=== PATIENT | female | born 1935 | race Caucasian/White ===

== ENCOUNTER → 2016-06-30 | Outpatient (CLI) | payer MEDICARE, BC ==
--- NOTE | 2016-06-30 10:58 | USB ---
Reason for exam: clinical finding. History: Patient is postmenopausal. Family history of breast cancer in maternal cousin, premenopausal breast cancer in sister at age 54, and breast cancer in maternal aunt at age 70. Indicated problem(s): lump or thickening in the left breast. Physical Findings: Nurse Summary: all soft, nodular, movable (nurse ts). US Breast LT Left breast ultrasound including all four quadrants, the retroareolar region and axilla demonstrates a 0.3 x 0.3 x 0.3cm round, cystic, benign lesion at the nipple and a 0.7 x 0.4 x 0.3cm intramammary lymph node, benign at 3 o'clock. No solid or cystic area at the 2:30 palpale site. Patient's routine annual exam can be performed in diagnostic clinic. These results were verbally communicated with the patient and result sheet given to the patient on 06/30/16. ASSESSMENT: Negative, BI-RAD 1 RECOMMENDATION: Follow-up diagnostic mammogram of both breasts in 5 months. Back on schedule for November 2016.
== END | disposition home or self-care (01) ==
LOC: RADUSWWP 08:12
PROVIDERS: ATTEND Family Medicine
DX: N63 Unspecified lump in breast (principal)

== ENCOUNTER → 2016-11-08 | Outpatient (CLI) | payer MEDICARE, BC ==
--- NOTE | 2016-11-08 13:53 | US ---
EXAMINATION TYPE: US kidneys/renal and bladder DATE OF EXAM: 11/08/2016 11:01 AM COMPARISON: Previous dated May CLINICAL HISTORY: N18.3 CKD Stage 3. EXAM MEASUREMENTS: Right Kidney: 8.6 x 4.5 x 5.0 cm Left Kidney: 8.3 x 3.6 x 3.4 cm Patient of large thick body habitus. Technically difficult study. Right Kidney: No hydronephrosis or masses seen Left Kidney: No hydronephrosis or masses seen Bladder: wnl Bilateral Jets seen: No There is no evidence for hydronephrosis at this point in time. No nephrolithiasis is seen. No leonel s are identified. Cortical medullary differentiation is maintained. The urinary bladder is anechoic. Bilateral ureteral jets are seen. There is no ascites. IMPRESSION: Technologist reports and technically demanding exam. Kidney sizes as described.
== END | disposition home or self-care (01) ==
LOC: RADUSWWP 10:39
PROVIDERS: ATTEND Internal Medicine Nephrology
DX: N18.3 Chronic kidney disease, stage 3 (moderate) (principal)
CPT/HCPCS: 76770

== ENCOUNTER → 2016-11-30 | Outpatient (CLI) | payer MEDICARE, BC ==
--- NOTE | 2016-11-30 14:59 | MM ---
Reason for exam: additional evaluation requested from prior study. Last mammogram was performed 1 year ago. History: Patient is postmenopausal. Family history of breast cancer in maternal cousin, premenopausal breast cancer in sister at age 54, and breast cancer in maternal aunt at age 70. Physical Findings: Nurse did not find any significant physical abnormalities on exam. MG 3D Diag Mammo W/Cad JODY Bilateral CC and MLO view(s) were taken. Prior study comparison: December 08, 2015, bilateral MG 3d screening mammo w/cad. September 18, 2014, bilateral MG screening mammo w CAD. The breast tissue is heterogeneously dense. This may lower the sensitivity of mammography. Finding #1: There is a 8 mm circumscribed oval mass in the upper outer quadrant, middle position of the right breast. Finding #2: There are typically benign vascular calcifications in both breasts. No significant changes in finding since December 08, 2015. These results were verbally communicated with the patient and result sheet given to the patient on 11/30/16. ASSESSMENT: Incomplete: need additional imaging evaluation, BI-RAD 0 RECOMMENDATION: Ultrasound of the right breast.
--- NOTE | 2016-11-30 15:01 | USB ---
Reason for exam: additional evaluation requested from abnormal screening. History: Patient is postmenopausal. Family history of breast cancer in maternal cousin, premenopausal breast cancer in sister at age 54, and breast cancer in maternal aunt at age 70. US Breast Limited RT Right breast ultrasound demonstrates a 0.5 x 0.3 x 0.7cm oval, cystic lesion at 9 o'clock. These results were verbally communicated with the patient and result sheet given to the patient on 11/30/16. ASSESSMENT: Probably benign, BI-RAD 3 RECOMMENDATION: Follow-up diagnostic mammogram and ultrasound of the right breast in 6 months.
== END | disposition home or self-care (01) ==
LOC: RADMAMWWP 13:12
PROVIDERS: ATTEND Family Medicine
DX: R92.8 Other abnormal and inconclusive findings on diagnostic imaging of breast (principal)
CPT/HCPCS: 76642; G0204; G0279

== ENCOUNTER → 2017-06-27 | Outpatient (CLI) | payer MEDICARE, BC ==
--- NOTE | 2017-06-28 07:17 | MM ---
Reason for exam: follow-up at short interval from prior study. Last mammogram was performed 7 months ago. History: Patient is postmenopausal. Family history of breast cancer in maternal cousin, premenopausal breast cancer in sister at age 54, and breast cancer in maternal aunt at age 70. Physical Findings: Nurse did not find any significant physical abnormalities on exam. MG 3D Diag Mammo W/Cad RT CC and MLO view(s) were taken of the right breast. Prior study comparison: November 30, 2016, bilateral MG 3d diag mammo w/cad JODY. December 08, 2015, bilateral MG 3d screening mammo w/cad. The breast tissue is heterogeneously dense. This may lower the sensitivity of mammography. Benign calcifications in the right breast. There is chronic nodularity in the right breast. These results were verbally communicated with the patient and result sheet given to the patient on 06/27/17. ASSESSMENT: Benign, BI-RAD 2 RECOMMENDATION: Routine screening mammogram of both breasts in 6 months. Back on schedule for November 2017.
--- NOTE | 2017-06-28 07:18 | USB ---
Reason for exam: follow-up at short interval from prior study. History: Patient is postmenopausal. Family history of breast cancer in maternal cousin, premenopausal breast cancer in sister at age 54, and breast cancer in maternal aunt at age 70. US Breast RT Right breast ultrasound includes all four quadrants, the retroareolar region and axilla. Finding demonstrates a 0.4 x 0.4 x 0.2cm cystic lesion at 9 o'clock. These results were verbally communicated with the patient and result sheet given to the patient on 06/27/17. ASSESSMENT: Benign, BI-RAD 2 RECOMMENDATION: Routine screening mammogram of both breasts in 6 months. Back on schedule for November 2017.
== END | disposition home or self-care (01) ==
LOC: RADMAMWWP 13:20
PROVIDERS: ATTEND Family Medicine
DX: R92.8 Other abnormal and inconclusive findings on diagnostic imaging of breast (principal); N63.10 Unspecified lump in the right breast, unspecified quadrant
CPT/HCPCS: 77065; 76641; G0279

== ENCOUNTER → 2017-12-27 | Outpatient (CLI) | payer MEDICARE, BC ==
--- NOTE | 2017-12-28 15:20 | MM ---
Reason for exam: screening (asymptomatic). Last mammogram was performed 6 months ago. History: Patient is postmenopausal. Family history of breast cancer in maternal cousin, premenopausal breast cancer in sister at age 54, and breast cancer in maternal aunt at age 70. Physical Findings: A clinical breast exam by your physician is recommended on an annual basis and results should be correlated with mammographic findings. MG Screening Mammo w CAD Bilateral CC and MLO view(s) were taken. XCCL view(s) were taken of the right breast. Prior study comparison: June 27, 2017, right breast MG 3d diag mammo w/cad RT. November 30, 2016, bilateral MG 3d diag mammo w/cad JODY. Finding: There are typically benign vascular calcifications in both breasts. There is no discrete abnormality. ASSESSMENT: Benign, BI-RAD 2 RECOMMENDATION: Routine screening mammogram of both breasts in 1 year.
== END | disposition home or self-care (01) ==
LOC: RADMAMWWP 11:20
PROVIDERS: ATTEND Family Medicine
DX: Z12.31 Encounter for screening mammogram for malignant neoplasm of breast (principal)
CPT/HCPCS: 77067

== ENCOUNTER → 2019-01-18 | Outpatient (CLI) | payer MEDICARE, BC ==
--- NOTE | 2019-01-21 10:27 | MM ---
Reason for exam: screening (asymptomatic). Last mammogram was performed 1 year and 1 month ago. History: Patient is postmenopausal. Family history of breast cancer in maternal cousin, premenopausal breast cancer in sister at age 54, and breast cancer in maternal aunt at age 70. Physical Findings: A clinical breast exam by your physician is recommended on an annual basis and results should be correlated with mammographic findings. MG 3D Screening Mammo W/Cad Bilateral CC and MLO view(s) were taken. Prior study comparison: December 27, 2017, bilateral MG screening mammo w CAD. June 27, 2017, right breast MG 3d diag mammo w/cad RT. The breast tissue is heterogeneously dense. This may lower the sensitivity of mammography. There are benign appearing vascular calcifications bilaterally. There is no discrete abnormality. ASSESSMENT: Benign, BI-RAD 2 RECOMMENDATION: Routine screening mammogram of both breasts in 1 year.
== END | disposition home or self-care (01) ==
LOC: RADMAMWWP 14:02
PROVIDERS: ATTEND Family Medicine
DX: Z12.31 Encounter for screening mammogram for malignant neoplasm of breast (principal)
CPT/HCPCS: 77063; 77067

== ENCOUNTER → 2021-07-08 | Outpatient (CLI) | payer MEDICARE ==
--- NOTE | 2021-07-08 15:38 | US ---
EXAMINATION TYPE: US kidneys/renal and bladder DATE OF EXAM: 07/08/2021 COMPARISON: NONE CLINICAL HISTORY: N18.32 STAGE 3 CKD KIDNEY DISEASE. CKD EXAM MEASUREMENTS: Right Kidney: 8.4 x 3.9 x 4.1 cm Left Kidney: 8.0 x 4.0 x 3.5 cm Right Kidney: Simple cystic area = 2.1 x 2.0 x 2.2cm Left Kidney: no evidence of hydronephrosis Bladder: appears wnl Bilateral Jets seen: no urinary bladder is sonolucent. The posterior wall is normal. IMPRESSION: 1. Right renal cyst.
== END | disposition home or self-care (01) ==
LOC: RADUSWWP 11:59
PROVIDERS: ATTEND Internal Medicine Nephrology
DX: N28.1 Cyst of kidney, acquired (principal)
CPT/HCPCS: 76770

== ENCOUNTER → 2021-07-08 | Outpatient (CLI) | payer MEDICARE ==
--- NOTE | 2021-07-09 11:51 | MM ---
Reason for exam: screening (asymptomatic). Last mammogram was performed 2 years and 6 months ago. History: Patient is postmenopausal. Family history of breast cancer in maternal cousin, premenopausal breast cancer in sister at age 54, and breast cancer in maternal aunt at age 70. Physical Findings: A clinical breast exam by your physician is recommended on an annual basis and results should be correlated with mammographic findings. MG 3D Screening Mammo W/Cad Bilateral CC and MLO view(s) were taken. Prior study comparison: January 18, 2019, bilateral MG 3d screening mammo w/cad. December 27, 2017, bilateral MG screening mammo w CAD. The breast tissue is heterogeneously dense. This may lower the sensitivity of mammography. There are benign appearing vascular calcifications bilaterally. There is no discrete abnormality. ASSESSMENT: Benign, BI-RAD 2 RECOMMENDATION: Routine screening mammogram of both breasts in 1 year.
== END | disposition home or self-care (01) ==
LOC: RADMAMWWP 12:03
PROVIDERS: ATTEND Family Medicine
DX: Z12.31 Encounter for screening mammogram for malignant neoplasm of breast (principal); Z78.0 Asymptomatic menopausal state; Z80.3 Family history of malignant neoplasm of breast
CPT/HCPCS: 77063; 77067

== ENCOUNTER → 2021-08-31 | Outpatient (CLI) | payer MEDICARE ==
--- NOTE | 2021-08-31 12:47 | XR ---
EXAMINATION TYPE: XR wrist complete RT DATE OF EXAM: 08/31/2021 COMPARISON: NONE HISTORY: 86 year-old female right wrist pain, [id number]. TECHNIQUE: 3 views FINDINGS: Widening of the scapholunate interval at 3 mm. There seems to be some joint space narrowing at the ra dioscaphoid joint. Mild degenerative change first CMC joint. Corticated 3 mm fragment adjacent to the ulnar styloid process likely sequela of prior injury. No acute fracture, subluxation, dislocation se en. IMPRESSION: 1. Widened scapholunate interval suggesting underlying injury to the scapholunate ligament. 2. The presence of joint space narrowing at the radioscaphoid joint may indicate that #1 is an old in jury with developing SLAC wrist. 3. Mild OA at the base of the thumb. 3 mm corticated bone fragment at the ulnar styloid process likel y sequela of remote injury.
== END | disposition home or self-care (01) ==
LOC: RADXRYALE 09:40
PROVIDERS: ATTEND Physician Assistant Medical
DX: M18.11 Unilateral primary osteoarthritis of first carpometacarpal joint, right hand (principal); M25.831 Other specified joint disorders, right wrist

== ENCOUNTER 2023-04-19 06:52 | Day surgery (SDC) | payer MEDICARE ==
[~2023-04-19 06:52] MED LIST: LIDOCAINE 1% (10MG/ML) FOR IV START INTRADERMA PRN
[2023-04-19] MEDS: LACTATED RINGERS 1,000 ML IV SCH ×2 (07:36→07:57)
[2023-04-19] MEDS ORDERED: PROPOFOL 10 MG/ML 20 ML VIAL IV ONE (08:20)
[2023-04-19] MEDS ORDERED: LIDOCAINE 1% INJ 10MG/ML (20 ML MDV) ONE (08:20)
[2023-04-19] MEDS ORDERED: BENZOCAINE SPRAY 1 CAN TOPICAL ONE (08:40)
--- NOTE | 2023-04-19 08:58 | P.PCN ---
Date of Procedure: 04/19/23 Description of Procedure: Indication: Atrial fibrillation Procedure Description: After explaining the procedure to the patient, it's risk and complications, blood pressure, heart rate and O2 saturation were monitored. The throat was sprayed with Cetacaine. Patient received sedation per anesthesia department. The probe was introduced into the esophagus without difficulty. Images were obtained. Following that, the probe was removed. There was no immediate complication. Findings: Left atrial size is dilated, spontaneous contrast was noted. Left atrial appendage is normal. Left ventricular size and systolic function are normal. The aortic valve revealed fibrocalcific changes of the aortic cusps with preserved opening, mitral valve appears to be normal, tricuspid valve appears to be normal. No pericardial effusion was noted. Descending thoracic aorta revealed mild atherosclerotic changes. No shunting with contrast bubble study. Doppler: Pulse wave and color Doppler were obtained, an revealed mild mitral and tricuspid regurgitation, there was no shunting by color Doppler study. Conclusion: 1. Dilated left atrial size with normal appearance of the left atrial appendage 2. Normal of ventricle size and systolic function 3. Mild mitral and tricuspid regurgitation 4. And no pericardial effusion 5. Mild atherosclerotic changes of the descending thoracic aorta Cardioversion: After obtaining MEEK and sedated state synchronized biphasic cardioversion using 150 J was performed with scientology of sinus mechanism, there was no immediate complication.
[2023-04-19] MEDS ORDERED: LEVOTHYROXINE 75 MCG TAB PO SCH (09:00)
[2023-04-19] MEDS ORDERED: allopurinoL 300 MG TAB PO SCH (09:00)
[2023-04-19] MEDS ORDERED: SODIUM CHLORIDE 0.9% 1,000 ML IV SCH (09:00)
[2023-04-19] MEDS ORDERED: NON FORMULARY DRUG (Spironolactone [Spironolactone] 50 MG Tablet) PO SCH (09:00)
[2023-04-19] MEDS ORDERED: atenoloL 50 MG TAB PO SCH (09:00)
[2023-04-19 09:44] VITALS: RESP 16; TEMP 98
[2023-04-19 10:38] VITALS: BP 132/65; PULSE 78
[2023-04-19] MEDS ORDERED: RIVAROXABAN 15 MG TAB PO SCH (21:00)
[2023-04-19] MEDS ORDERED: ATORVASTATIN 40 MG TAB PO SCH (21:00)
== END 2023-04-19 10:23 | disposition home or self-care (01) ==
LOC: OR 06:52
PROVIDERS: ATTEND Internal Medicine Interventional Cardiology
DX: I08.2 Rheumatic disorders of both aortic and tricuspid valves (principal); I48.91 Unspecified atrial fibrillation; I70.0 Atherosclerosis of aorta; I25.2 Old myocardial infarction; I10 Essential (primary) hypertension; E78.5 Hyperlipidemia, unspecified; E03.9 Hypothyroidism, unspecified; M19.90 Unspecified osteoarthritis, unspecified site; Z87.891 Personal history of nicotine dependence; Z79.890 Hormone replacement therapy; Z79.899 Other long term (current) drug therapy; Z79.01 Long term (current) use of anticoagulants; Z88.0 Allergy status to penicillin; Z88.6 Allergy status to analgesic agent
CPT/HCPCS: 93312; 93320; 93325; 92960; J2001; J2704

== ENCOUNTER 2023-08-20 05:47 | Emergency (ER) | payer MEDICARE ==
[2023-08-20 06:09] LABS: Basophils % (A) 0 %; Eosinophils # (A) 0.2 k/uL (0-0.7); Eosinophils % (A) 2 %; HCT 33.4 % (34.0-46.0); Lymphocytes # (A) 1.3 k/uL (1.0-4.8); Lymphocytes % (A) 16 %; MCV 100.1 fL (80.0-100.0); Macrocytosis Slight; Monocytes # (A) 0.5 k/uL (0-1.0); Monocytes % (A) 6 %; Neutrophils % (A) 74 %; Platelet Count 142 k/uL (150-450); RBC 3.34 m/uL (3.80-5.40); WBC 8.1 k/uL (3.8-10.6)
[2023-08-20 06:26] LABS: ALT 16 U/L (4-34); AST 34 U/L (14-36); African American GFR (CKD) 32 (>60 ml/min/1.73 sqM); Alkaline Phosphatase 118 U/L (38-126); Anion Gap 11 mmol/L; Blood Urea Nitrogen 29 mg/dL (7-17); Calcium 9.4 mg/dL (8.4-10.2); Carbon Dioxide 23 mmol/L (22-30); Chloride 104 mmol/L (98-107); Glucose 101 mg/dL (74-99); Magnesium 1.6 mg/dL (1.6-2.3); Non-African American GFR(CKD) 28 (>60 ml/min/1.73 sqM); Potassium 4.5 mmol/L (3.5-5.1); Sodium 138 mmol/L (137-145); Total Protein 6.6 g/dL (6.3-8.2)
--- NOTE | 2023-08-20 06:30 | ED ---
Chest Pain HPI - General Chief Complaint: Chest Pain Stated Complaint: CHEST PAIN, SOB, SHOULDER PAIN Time Seen by Provider: 08/20/23 05:58 Source: patient, RN notes reviewed Mode of arrival: wheelchair Limitations: no limitations - History of Present Illness Initial Comments: 88-year-old female presents emergency department chief complaint of left-sided chest, shoulder pain. Patient states started last night is worsening. She states pain is in the front and the back states it hurts with movement, deep inspiration. She states it makes her feel short of breath she denies any recent cough or cold-like symptoms. She states she had a prior cardiac disease including hyperlipidemia and hypertension patient denies abdominal complaints denies nausea vomiting no diaphoretic episodes. - Related Data Home Medications Medication Instructions Recorded Confirmed Atorvastatin [Lipitor] 40 mg PO HS 06/16/15 04/19/23 Magnesium 500 mg PO BID 06/16/15 04/19/23 allopurinoL [Zyloprim] 300 mg PO DAILY 06/16/15 04/19/23 atenoloL [Tenormin] 50 mg PO DAILY 06/16/15 04/19/23 Cholecalciferol (Vitamin D3) 125 mcg PO DAILY 04/17/23 04/19/23 [Vitamin D3 (125 MCG = 5,000 IU)] Cyanocobalamin [Vitamin B-12] 500 mcg PO DAILY 04/17/23 04/19/23 Levothyroxine Sodium [Synthroid] 75 mcg PO DAILY 04/17/23 04/19/23 Rivaroxaban [Xarelto] 15 mg PO HS 04/17/23 04/19/23 Spironolactone 50 mg PO DAILY 04/17/23 04/19/23 Unk Folate 400 mcg PO DAILY 04/17/23 04/19/23 Unk Neuriva 1 tab PO DAILY 04/17/23 04/19/23 Unk Preservision 1 tab PO DAILY 04/17/23 04/19/23 Allergies Allergy/AdvReac Type Severity Reaction Status Date / Time aspirin Allergy Rash/Hives Verified 08/20/23 05:51 Penicillins Allergy Rash/Hives Verified 08/20/23 05:51 Review of Systems ROS Statement: Those systems with pertinent positive or pertinent negative responses have been documented in the HPI. ROS Other: All systems not noted in ROS Statement are negative. EKG Findings - EKG Comments: EKG Findings:: EKG performed at 555 A-fib was rate of 52 QRS 80 QT/QTc 412/392 - EKG Results: EKG: interpreted by LEW Past Medical History Past Medical History: Atrial Fibrillation, COPD, Hyperlipidemia, Hypertension, Myocardial Infarction ([place]), Osteoarthritis ([place]), Thyroid Disorder Additional Past Medical History / Comment(s): HX [place] 1990/hx macular degeneration, urinary leakage. See Dr Matute's H&P Last Myocardial Infarction Date:: 1990 History of Any Multi-Drug Resistant Organisms: None Reported Past Surgical History: Cholecystectomy, Hysterectomy, Joint Replacement Additional Past Surgical History / Comment(s): Hx. right and left total knee replacements 2009, and 2011, bilateral shoulder repairs for tears in rotator cuffs 2008, and 2007/ 2009 bilateral cataract surgeries, colonoscopy Past Anesthesia/Blood Transfusion Reactions: No Reported Reaction Past Psychological History: No Psychological Hx Reported Smoking Status: Former smoker, Light tobacco smoker Past Alcohol Use History: None Reported Past Drug Use History: None Reported - Past Family History Father Family Medical History: Myocardial Infarction ([place]) Mother Additional Family Medical History / Comment(s): mom from natural causes age 90 Sister(s) Family Medical History: Cancer Additional Family Medical History / Comment(s): sister- breast General Exam Limitations: no limitations General appearance: alert, in no apparent distress Head exam: Present: atraumatic, normocephalic, normal inspection Eye exam: Present: normal appearance, PERRL, EOMI. Absent: scleral icterus, conjunctival injection, periorbital swelling Neck exam: Present: normal inspection. Absent: tenderness, meningismus, lymphadenopathy Respiratory exam: Present: normal lung sounds bilaterally, chest wall tenderness. Absent: respiratory distress, wheezes, rales, rhonchi, stridor Cardiovascular Exam: Present: regular rate, normal rhythm, normal heart sounds. Absent: systolic murmur, diastolic murmur, rubs, gallop, clicks Extremities exam: Present: other (Pain with left shoulder range of motion, with palpation.) Neurological exam: Present: alert, oriented X3 Skin exam: Present: warm, dry, intact, normal color. Absent: rash Course Vital Signs 08/20/23 05:48 Temperature 97.7 F Pulse Rate 56 L Respiratory 24 Rate Blood Pressure 134/68 O2 Sat by Pulse 98 Oximetry Chest Pain MDM - MDM Was pt. sent in by a medical professional or institution (, [facility], [facility]OUR TESTER, urgent care, hospital, or fdc...) When possible be specific @ -No Did you speak to anyone other than the patient for history (EMS, parent, family, police, friend...)? What history was obtained from this source @ -No Did you review nursing and triage notes (agree or disagree)? Why? @ -I reviewed and agree with nursing and triage notes Were old charts reviewed (outside hosp., previous admission, EMS record, old EKG, old radiological studies, urgent care reports/EKG's, fdc records)? Report findings @ -[Reviewed prior laboratory studies Differential Diagnosis (chest pain, altered mental status, abdominal pain women, abdominal pain men, vaginal bleeding, weakness, fever, dyspnea, syncope, headache, dizziness, GI bleed, back pain, seizure, CVA, palpatations, mental health, musculoskeletal)? @ -Differential Chest Pain: Stable Angina, Unstable Angina, STEMI, NSTEMI Aortic Dissection, Pneumothorax, Musculoskeletal, Esophageal Spasm GERD, Cholecystitis, Pancreatitis, Zoster, this is not meant to be an all-inclusive list. EKG interpreted by me (3pts min.). @ -Chest x-ray shows mild COPD changes, possible atelectasis or minimal edema X-rays interpreted by me (1pt min.). @ -None done CT interpreted by me (1pt min.). @ -None done U/S interpreted by me (1pt. min.). @ -None done What testing was considered but not performed or refused? (CT, X-rays, U/S, labs)? Why? @ -None What meds were considered but not given or refused? Why? @ -None Did you discuss the management of the patient with other professionals (professionals i.e. , [facility], [facility]OUR TESTER, lab, RT, psych nurse, social worker psychiatric, industrial twisting machine operator, teacher, chief nursing officer, case making machine operator)? Give summary @ -No Was smoking cessation discussed for >3mins.? @ -No Was critical care preformed (if so, how long)? @ -No Were there social determinants of health that impacted care today? How? (Homelessness, low income, unemployed, alcoholism, drug addiction, transportation, low edu. Level, literacy, decrease access to med. care, [facility], rehab)? @ -No Was there de-escalation of care discussed even if they declined (Discuss DNR or withdrawal of care, Hospice)? DNR status @ -No What co-morbidities impacted this encounter? (DM, HTN, Smoking, COPD, CAD, Cancer, CVA, ARF, Chemo, Hep., AIDS, mental health diagnosis, sleep apnea, morbid obesity)? @ -A-fib, hyperlipidemia, hypertension Was patient admitted / discharged? Hospital course, mention meds given and route, prescriptions, significant lab abnormalities, going to OR and other pertinent info. @ -Discharge 88-year-old presenting for chest pain initial workup reveals no specific acute findings. Patient has multiple cardiac risk factors recommended patient to be admitted given his risk factors and that she has high risk for heart issues. Patient refuses to stay stating that she does not want to stay in the hospital. She did request something for her reproducible chest wall pain and she understands the risk of leaving. Undiagnosed new problem with uncertain prognosis? @ -No Drug Therapy requiring intensive monitoring for toxicity (Heparin, Nitro, Insulin, Cardizem)? @ -No Were any procedures done? @ -No Diagnosis/symptom? @ -Chest wall pain, chest pain Acute, or Chronic, or Acute on Chronic? @ -Acute Uncomplicated (without systemic symptoms) or Complicated (systemic symptoms)? @ -Complicated Side effects of treatment? @ -No Exacerbation, Progression, or Severe Exacerbation? @ -No Poses a threat to life or bodily function? How? (Chest pain, [place], [place], pneumonia, PE, COPD, DKA, ARF, appy, cholecystitis, CVA, Diverticulitis, Homicidal, Suicidal, threat to staff... and all critical care pts) @ -Yes possible ACS Disposition Clinical Impression: Chest pain, Chest wall pain Disposition: HOME SELF-CARE Condition: Stable Instructions (If sedation given, give patient instructions): Chest Pain (ED) Additional Instructions: Please return to the Emergency Department if symptoms worsen or any other concerns. Is patient prescribed a controlled substance at d/c from ED?: No Referrals: Thomas Vicente DO [Primary Care Provider] - 1-2 days Time of Disposition: 07:36
[2023-08-20 06:34] LABS: NT-Pro-B-Type Natriuretic Pept 4520 pg/mL
[2023-08-20 06:41] LABS: INR 1.6 (<1.2); Partial Thromboplastin Time 39.5 sec (22.0-30.0); Prothrombin Time 16.5 sec (10.0-12.5)
[2023-08-20] MEDS: ONDANSETRON 4 MG/2 ML VIAL IVP STA (06:48)
[2023-08-20] MEDS: MORPHINE SULFATE 2 MG/ML SYRINGE IVP ONE (06:48)
--- NOTE | 2023-08-20 07:08 | XR ---
EXAMINATION TYPE: XR chest 2V DATE OF EXAM: 08/20/2023 6:43 AM CLINICAL INDICATION:Female, 88 years old with history of chest pain; [facility] COMPARISON: None TECHNIQUE: XR chest 2V. Frontal and lateral views of the chest.. FINDINGS: Lines/Tubes/Devices: No indwelling lines are seen. Heart/mediastinum: Heart appears mildly to moderately enlarged. Atherosclerotic calcifications are s een in the aorta. Pulmonary vascularity: Not increased, Lungs/Pleura: Lungs appear somewhat hyperinflated with diffusely increased interstitial markings. Air space opacity in the medial right lung base. No sizable effusion or pneumothorax associated. Musculoskeletal: No acute osseous abnormality demonstrated in the limits of the exam. Degenerative c hanges of the spine and shoulders. Surgical anchor right humeral head. Probable chronic rotator cuff disease bilaterally. Other findings: None. IMPRESSION: 1. Cardiomegaly. 2. COPD changes. Increased interstitial markings could be related to this, and/or superimposed edema or infiltrate. 3. Infiltrate or atelectasis in the right lung base. Follow-up to resolution.
[2023-08-20] MEDS: ACET/COD 300 MG/30 MG STARTER PACK 6 TAB BTL PO STA (07:43)
[2023-08-20 08:28] VITALS: BP 119/72; PULSE 52; RESP 16; TEMP 97.4
== END 2023-08-20 07:48 | disposition home or self-care (01) ==
LOC: EC 05:47
DX: I48.91 Unspecified atrial fibrillation (principal); J44.9 Chronic obstructive pulmonary disease, unspecified; I10 Essential (primary) hypertension; I25.2 Old myocardial infarction; M19.90 Unspecified osteoarthritis, unspecified site; E07.9 Disorder of thyroid, unspecified; E78.5 Hyperlipidemia, unspecified; F17.200 Nicotine dependence, unspecified, uncomplicated; Z79.1 Long term (current) use of non-steroidal anti-inflammatories (NSAID); Z79.890 Hormone replacement therapy; Z79.899 Other long term (current) drug therapy; Z79.01 Long term (current) use of anticoagulants; Z88.0 Allergy status to penicillin; Z88.6 Allergy status to analgesic agent
CPT/HCPCS: 36415; 93005; 85379; 83880; 80053; 83735; 84484; 85025; 85610; 85730; 71046; 99285; 96374; 96375; J2405; J2270

== ENCOUNTER 2023-10-31 10:29 | Inpatient (IN) | payer MEDICARE ==
--- NOTE | 2023-10-31 10:57 | ED ---
General Adult HPI - General Stated complaint: Heart palpitations Time Seen by Provider: 10/31/23 10:50 Source: patient, RN notes reviewed, old records reviewed - History of Present Illness Initial comments: Patient is an 88-year-old female who presents emergency department complaining of heart palpitations. Patient states for the last couple of days, with any form of activity she begins experiencing heart palpitations and shortness of breath. Has a history of atrial fibrillation, hypertension, hyperlipidemia. Al so has a history of cardiac stents. Very remote history of smoking tobacco. Is on a blood thinner Xarelto. Presents for further evaluation at this time. Currently has no acute complaints. Is currently at rest. Presents for further evaluation. Denies fevers, chills, cough. - Related Data Home Medications Medication Instructions Recorded Confirmed Atorvastatin [Lipitor] 40 mg PO HS 06/16/15 10/31/23 Magnesium 1,000 mg PO HS 06/16/15 10/31/23 allopurinoL [Zyloprim] 300 mg PO DAILY 06/16/15 10/31/23 Cyanocobalamin [Vitamin B-12] 500 mcg PO DAILY 04/17/23 10/31/23 Levothyroxine Sodium [Synthroid] 75 mcg PO DAILY 04/17/23 10/31/23 Rivaroxaban [Xarelto] 15 mg PO W/SUPPER 04/17/23 10/31/23 Spironolactone 50 mg PO DAILY 04/17/23 10/31/23 Unk Neuriva 1 tab PO DAILY 04/17/23 10/31/23 Folic Acid 0.4 mg PO DAILY 10/31/23 10/31/23 Vit C/E/Zn/Coppr/Lutein/Zeaxan 1 cap PO BID 10/31/23 10/31/23 [Preservision Areds 2 Softgel] atenoloL [Tenormin] 25 mg PO DAILY 10/31/23 10/31/23 Allergies Allergy/AdvReac Type Severity Reaction Status Date / Time aspirin Allergy Rash/Hives/ Verified 10/31/23 12:56 itching/bru ising Penicillins Allergy Rash/Hives/ Verified 10/31/23 12:56 itching/bru ising Review of Systems ROS Statement: Those systems with pertinent positive or pertinent negative responses have been documented in the HPI. Review of Systems: CONST: Denies fever EYES: Denies blurry vision ENT: Denies nasal congestion C/V: Endorses heart palpitations with activity but currently asymptomatic RESP: Denies shortness of breath GI: Denies abdominal pain : Denies dysuria SKIN: Denies rash. MSK: Denies joint pain. NEURO: Denies headache ROS Other: All systems not noted in ROS Statement are negative. Past Medical History Past Medical History: Atrial Fibrillation, COPD, Hyperlipidemia, Hypertension, Myocardial Infarction ([place]), Osteoarthritis (OA), Thyroid Disorder Additional Past Medical History / Comment(s): HX [place] 1990/hx macular degeneration, urinary leakage. See Dr Matute's H&P Last Myocardial Infarction Date:: 1990 History of Any Multi-Drug Resistant Organisms: None Reported Past Surgical History: Cholecystectomy, Hysterectomy, Joint Replacement Additional Past Surgical History / Comment(s): Hx. right and left total knee replacements 2009, and 2011, bilateral shoulder repairs for tears in rotator cuffs 2008, and 2007/ 2009 bilateral cataract surgeries, colonoscopy Past Anesthesia/Blood Transfusion Reactions: No Reported Reaction Past Psychological History: No Psychological Hx Reported Smoking Status: Former smoker, Light tobacco smoker Past Alcohol Use History: None Reported Past Drug Use History: None Reported - Past Family History Father Family Medical History: Myocardial Infarction ([place]) Mother Additional Family Medical History / Comment(s): mom from natural causes age 90 Sister(s) Family Medical History: Cancer Additional Family Medical History / Comment(s): sister- breast General Exam - General Exam Comments Initial Comments: General: Appears in no acute distress. HEAD: Normal with no signs of head trauma. EYES: PERRLA, EOMI, conjunctiva normal, no discharge. ENT: Hearing grossly intact, normal oropharynx. RESPIRATORY: Clear breath sounds bilaterally. No wheezes, rales, or rhonchi. C/V: Regular rate and rhythm. S1 and S2 auscultated, symmetrical pitting edema, peripheral pulses 2+ and intact throughout ABD: Abd is soft, nontender, nondistended EXT: Normal range of motion, no obvious deformity SKIN: No rashes or lesions observed on exposed skin. NEURO: Alert and oriented x 4. No focal deficits. Course Vital Signs 10/31/23 10/31/23 10/31/23 11:05 12:55 13:02 Temperature 97.7 F Pulse Rate 60 54 L Pulse Rate [ 58 L Parquetry Layer ] Respiratory 22 16 Rate Blood Pressure 114/71 99/34 O2 Sat by Pulse 100 100 Oximetry 10/31/23 10/31/23 10/31/23 13:40 13:52 14:54 Temperature Pulse Rate 60 61 54 L Pulse Rate [ Parquetry Layer ] Respiratory 20 20 16 Rate Blood Pressure 108/72 108/72 119/59 O2 Sat by Pulse 99 98 100 Oximetry Medical Decision Making - Medical Decision Making Was pt. sent in by a medical professional or institution (, PA, NOISE ABATEMENT ENGINEER, urgent care, hospital, or longterm...) When possible be specific @ -No Did you speak to anyone other than the patient for history (EMS, parent, family, police, friend...)? What history was obtained from this source @ -No Did you review nursing and triage notes (agree or disagree)? Why? @ -I reviewed and agree with nursing and triage notes Were old charts reviewed (outside hosp., previous admission, EMS record, old EKG, old radiological studies, urgent care reports/EKG's, longterm records)? Report findings @ -Old charts reviewed including previous EKG from August 2023. No obvious acute changes. Differential Diagnosis (chest pain, altered mental status, abdominal pain women, abdominal pain men, vaginal bleeding, weakness, fever, dyspnea, syncope, headache, dizziness, GI bleed, back pain, seizure, CVA, palpatations, mental health, musculoskeletal)? @ -Differential Palpitations Ventricular arrhythmias, atrial arrhythmias, myocardial infarction, anemia, thyrotoxicosis, electrolyte imbalance, hypokalemia, pulmonary embolism, pulmonary disease, drugs, alcohol, anxiety, stress.... This is not meant to be an all-inclusive list. EKG interpreted by me (3pts min.). @ -As above X-rays interpreted by me (1pt min.). @ -Chest x-ray reveals mild CHF or pulmonary vascular congestion. CT interpreted by me (1pt min.). @ -None done U/S interpreted by me (1pt. min.). @ -None done What testing was considered but not performed or refused? (CT, X-rays, U/S, labs)? Why? @ -None What meds were considered but not given or refused? Why? @ -None Did you discuss the management of the patient with other professionals (prof ranjith ikaycee Jeffrey, JESSICA, NOISE ABATEMENT ENGINEER, lab, RT, psych nurse, nursing home social worker, plastic hospital products assembler, teacher, chief executive officer, director case)? Give summary @ -No Was smoking cessation discussed for >3mins.? @ -No Was critical care preformed (if so, how long)? @ -No Were there social determinants of health that impacted care today? How? (Homelessness, low income, unemployed, alcoholism, drug addiction, transportation, low edu. Level, literacy, decrease access to med. care, senior living, rehab)? @ -No Was there de-escalation of care discussed even if they declined (Discuss DNR or withdrawal of care, Hospice)? DNR status @ -No What co-morbidities impacted this encounter? (DM, HTN, Smoking, COPD, CAD, Cancer, CVA, ARF, Chemo, Hep., AIDS, mental health diagnosis, sleep apnea, morbid obesity)? @ -Cardiac history, A-fib. Was patient admitted / discharged? Hospital course, mention meds given and route, prescriptions, significant lab abnormalities, going to OR and other pertinent info. @ -Patient presents to the emergency department complaining of worsening heart palpitations with activity as well as dyspnea. Resolves at rest. No other acute complaints. Compliant with medications. Denies any falls or injuries or fevers or cough. Presents for further evaluation at this time. Vital signs currently within acceptable limits. Will obtain cardiac workup. EKG shows no signs of acute ischemia.X-ray reveals possible mild pulmonary vascular congestion. Patient's laboratory studies reveal a anemia with a hemoglobin of 5.1. This is acute for the patient. Elevated coags as well, however patient is only on Xarelto and not Coumadin. Labs show CKD which appears near baseline however BUN is disproportionately elevated, concerning for upper GI bleed. Occult blood is positive after I reevaluate the patient. I did discuss with the patient regarding dark tarry stools and she does have gross dark tarry stools as well. She states she thought it was from eating chocolate for the last 2 weeks. It has been present over that time. Symptoms have been persistent over that time as well. I did discuss with the patient. Patient will be instructed on Kcentra as well as given a dose of vitamin K. Her kidney function will not allow for CT angiogram at this time to evaluate for GI bleed however this seems likely a slower bleed over the last 2 weeks. Patient will be transfused 2 units of packed red blood cells. I will consult gastroenterology, Dr. Sainz for evaluation. She was in agreement this plan. Vital signs remained within acceptable limits. She has no symptoms at rest. I discussed with the admitting team, Dr. Eaton of [facility] who accepted the admission. Undiagnosed new problem with uncertain prognosis? @ -No Drug Therapy requiring intensive monitoring for toxicity (Heparin, Nitro, Insulin, Cardizem)? @ -No Were any procedures done? @ -No Diagnosis/symptom? @ -GI bleed, CKD, symptomatic anemia, heart palpitations Acute, or Chronic, or Acute on Chronic? @ -Acute Uncomplicated (without systemic symptoms) or Complicated (systemic symptoms)? @ -Complicated Side effects of treatment? @ -None Exacerbation, Progression, or Severe Exacerbation] @ -No Poses a threat to life or bodily function? @ -Yes - Lab Data Result diagrams: 10/31/23 12:15 10/31/23 12:15 Lab Results 10/31/23 10/31/23 10/31/23 Range/Units 10:51 11:30 12:00 WBC (3.8-10.6) k/uL RBC (3.80-5.40) m/uL Hgb (11.4-16.0) gm/dL Hct (34.0-46.0) % MCV (80.0-100.0) fL MCH (25.0-35.0) pg MCHC (31.0-37.0) g/dL RDW (11.5-15.5) % Plt Count (150-450) k/uL MPV Hypochromasia Poikilocytosis Anisocytosis Macrocytosis PT (10.0-12.5) sec INR (<1.2) APTT (22.0-30.0) sec Sodium (137-145) mmol/L Potassium (3.5-5.1) mmol/L Chloride (98-107) mmol/L Carbon Dioxide (22-30) mmol/L Anion Gap mmol/L BUN (7-17) mg/dL Creatinine (0.52-1.04) mg/dL Est GFR (CKD-EPI)AfAm (>60 ml/min/1.73 sqM) Est GFR (CKD-EPI)NonAf (>60 ml/min/1.73 sqM) Glucose (74-99) mg/dL Plasma Lactic Acid Michael (0.7-2.0) mmol/L Calcium (8.4-10.2) mg/dL Magnesium (1.6-2.3) mg/dL Total Bilirubin (0.2-1.3) mg/dL AST (14-36) U/L ALT (4-34) U/L Alkaline Phosphatase (38-126) U/L Troponin I (0.000-0.034) ng/mL NT-Pro-B Natriuret Pep pg/mL Total Protein (6.3-8.2) g/dL Albumin (3.5-5.0) g/dL TSH (0.465-4.680) mIU/L Influenza Type A (PCR) Not Detected (Not Detectd) Influenza Type B (PCR) Not Detected (Not Detectd) RSV (PCR) Not Detected (Not Detectd) SARS-CoV-2 (PCR) Not Detected (Not Detectd) Blood Type A Positive Blood Type Confirm A Positive Blood Type Recheck No Previous Record Bld Type Recheck Status CABO Indicated Antibody Screen NEGATIVE Crossmatch See Detail Spec Expiration Date 11/03/2023 - 232910/31/23 10/31/23 10/31/23 Range/Units 12:15 12:15 12:15 WBC 8.7 (3.8-10.6) k/uL RBC 1.58 L (3.80-5.40) m/uL Hgb 5.1 L* (11.4-16.0) gm/dL Hct 17.4 L* (34.0-46.0) % MCV 110.2 H (80.0-100.0) fL MCH 32.0 (25.0-35.0) pg MCHC 29.1 L (31.0-37.0) g/dL RDW 19.8 H (11.5-15.5) % Plt Count 204 (150-450) k/uL MPV 9.1 Hypochromasia Marked Poikilocytosis Slight Anisocytosis Slight Macrocytosis Marked A PT 22.2 H (10.0-12.5) sec INR 2.2 H (<1.2) APTT 33.6 H (22.0-30.0) sec Sodium 133 L (137-145) mmol/L Potassium 5.0 (3.5-5.1) mmol/L Chloride 106 (98-107) mmol/L Carbon Dioxide 20 L (22-30) mmol/L Anion Gap 7 mmol/L BUN 58 H (7-17) mg/dL Creatinine 2.12 H (0.52-1.04) mg/dL Est GFR (CKD-EPI)AfAm 24 (>60 ml/min/1.73 sqM) Est GFR (CKD-EPI)NonAf 21 (>60 ml/min/1.73 sqM) Glucose 84 (74-99) mg/dL Plasma Lactic Acid Michael (0.7-2.0) mmol/L Calcium 8.2 L (8.4-10.2) mg/dL Magnesium 2.0 (1.6-2.3) mg/dL Total Bilirubin 0.6 (0.2-1.3) mg/dL AST 35 (14-36) U/L ALT 16 (4-34) U/L Alkaline Phosphatase 101 (38-126) U/L Troponin I (0.000-0.034) ng/mL NT-Pro-B Natriuret Pep 6500 pg/mL Total Protein 5.3 L (6.3-8.2) g/dL Albumin 2.9 L (3.5-5.0) g/dL TSH 0.664 (0.465-4.680) mIU/L Influenza Type A (PCR) (Not Detectd) Influenza Type B (PCR) (Not Detectd) RSV (PCR) (Not Detectd) SARS-CoV-2 (PCR) (Not Detectd) Blood Type Blood Type Confirm Blood Type Recheck Bld Type Recheck Status Antibody Screen Crossmatch Spec Expiration Date 10/31/23 10/31/23 Range/Units 12:15 12:15 WBC (3.8-10.6) k/uL RBC (3.80-5.40) m/uL Hgb (11.4-16.0) gm/dL Hct (34.0-46.0) % MCV (80.0-100.0) fL MCH (25.0-35.0) pg MCHC (31.0-37.0) g/dL RDW (11.5-15.5) % Plt Count (150-450) k/uL MPV Hypochromasia Poikilocytosis Anisocytosis Macrocytosis PT (10.0-12.5) sec INR (<1.2) APTT (22.0-30.0) sec Sodium (137-145) mmol/L Potassium (3.5-5.1) mmol/L Chloride (98-107) mmol/L Carbon Dioxide (22-30) mmol/L Anion Gap mmol/L BUN (7-17) mg/dL Creatinine (0.52-1.04) mg/dL Est GFR (CKD-EPI)AfAm (>60 ml/min/1.73 sqM) Est GFR (CKD-EPI)NonAf (>60 ml/min/1.73 sqM) Glucose (74-99) mg/dL Plasma Lactic Acid Michael 1.0 (0.7-2.0) mmol/L Calcium (8.4-10.2) mg/dL Magnesium (1.6-2.3) mg/dL Total Bilirubin (0.2-1.3) mg/dL AST (14-36) U/L ALT (4-34) U/L Alkaline Phosphatase (38-126) U/L Troponin I <0.012 (0.000-0.034) ng/mL NT-Pro-B Natriuret Pep pg/mL Total Protein (6.3-8.2) g/dL Albumin (3.5-5.0) g/dL TSH (0.465-4.680) mIU/L Influenza Type A (PCR) (Not Detectd) Influenza Type B (PCR) (Not Detectd) RSV (PCR) (Not Detectd) SARS-CoV-2 (PCR) (Not Detectd) Blood Type Blood Type Confirm Blood Type Recheck Bld Type Recheck Status Antibody Screen Crossmatch Spec Expiration Date - EKG Data -: EKG Interpreted by Me EKG Comments: 12-lead Electrocardiogram Interpretation Note EKG was reviewed and interpreted by myself. 12-lead ECG performed at 1148 is interpreted by me as revealing atrial fibrillation at a rate of 63 beats per minute. Jefferson is normal. QRS duration is 88 ms, QTc is 429 ms.. There were no ST or T wave abnormalities to suggest myocardial ischemia or injury. R wave progression across the precordium was satisfactory. By my interpretation this EKG is non-diagnostic for acute ischemia. Critical Care Time Critical Care Time: Yes Total Critical Care Time: 32 Disposition Clinical Impression: Heart palpitations, Symptomatic anemia, GI bleed, CKD (chronic kidney disease) Disposition: ADMITTED IP TO THIS [facility] Condition: Serious Time of Disposition: 14:00
[2023-10-31 12:31] LABS: INR 2.2 (<1.2); Partial Thromboplastin Time 33.6 sec (22.0-30.0); Prothrombin Time 22.2 sec (10.0-12.5)
[2023-10-31 12:41] LABS: Anisocytosis Slight; Hypochromasia Marked; MCHC 29.1 g/dL (31.0-37.0); MCV 110.2 fL (80.0-100.0); Macrocytosis Marked; Mean Platelet Volume 9.1; Platelet Count 204 k/uL (150-450); Poikilocytosis Slight; RBC 1.58 m/uL (3.80-5.40); RDW 19.8 % (11.5-15.5); WBC 8.7 k/uL (3.8-10.6)
[2023-10-31 12:49] LABS: ALT 16 U/L (4-34); AST 35 U/L (14-36); African American GFR (CKD) 24 (>60 ml/min/1.73 sqM); Albumin 2.9 g/dL (3.5-5.0); Alkaline Phosphatase 101 U/L (38-126); Anion Gap 7 mmol/L; Blood Urea Nitrogen 58 mg/dL (7-17); Calcium 8.2 mg/dL (8.4-10.2); Carbon Dioxide 20 mmol/L (22-30); Chloride 106 mmol/L (98-107); Glucose 84 mg/dL (74-99); Non-African American GFR(CKD) 21 (>60 ml/min/1.73 sqM); Sodium 133 mmol/L (137-145); Total Bilirubin 0.6 mg/dL (0.2-1.3); Total Protein 5.3 g/dL (6.3-8.2)
[2023-10-31 12:56] LABS: NT-Pro-B-Type Natriuretic Pept 6500 pg/mL
[2023-10-31 13:12] LABS: HCT 17.4 % (34.0-46.0); HGB 5.1 gm/dL (11.4-16.0)
--- NOTE | 2023-10-31 13:34 | XR ---
EXAMINATION TYPE: XR chest 2V DATE OF EXAM: 10/31/2023 COMPARISON: 08/20/2023 HISTORY: 88-year-old female with weakness TECHNIQUE: AP and lateral views FINDINGS: Heart mildly enlarged. Diffuse interstitial and vascular prominence. Trace pleural effusions on the l ateral view. Cholecystectomy clips. IMPRESSION: Consider mild CHF and pulmonary vascular congestion. Trace effusions on the lateral view.
[2023-10-31] MEDS ORDERED: Kcentra PER PHARMACY 1 EACH MISC MISCELLANE PRN (13:50)
[2023-10-31] MEDS: ACETAMINOPHEN TAB 325 MG TAB PO STA (13:50)
[2023-10-31] MEDS ORDERED: NALOXONE 0.4 MG/ML 1 ML VIAL IV PRN (13:57)
[2023-10-31] MEDS ORDERED: ACETAMINOPHEN TAB 325 MG TAB PO PRN (13:57)
[2023-10-31] MEDS ORDERED: HUMAN PROTHROMBIN COMPLX 500 UNIT/16 ML VIAL IV ONE (14:47)
[2023-10-31] MEDS: PHYTONADIONE 5 MG in SODIUM CHLORIDE 0.9% 50 ML IVPB ONE (14:47)
[2023-10-31] MEDS: HUMAN PROTHROMBIN COMPLX IV ONE (14:47)
[2023-10-31] MEDS: PANTOPRAZOLE 40 MG/10 ML VIAL IVP STA (14:48)
--- NOTE | 2023-10-31 15:29 | P.HPIM ---
History of Present Illness H&P Date: 10/31/23 88 year old F with PMH of AFib on Xarelto, hypothyroidism, COPD, CKD, hypertension, dyslipidemia, macular degeneration presents to the ED. She reports a constellation of symptoms including exertional shortness of breath with little exertion, palpitations with exertion, extreme fatigue and weakness. She initially thought her symptoms were related to A-Fib, underwent cardioversion with Dr. Matute on 04/2023 but symptoms have persisted. Over the past week, patient has noted very black stools and diarrhea. She thought it was related to dark chocolate she was eating. She reports a history of bleeding ulcer in the past. Today she had one episode on NBN[employer] nausea and vomiting which prompted her to come to the ED. In the ED she underwent extensive evaluation. BP 114/71, HR 60, T 97.7F, RR 22, 100% on RA. CBC, coag panel, CMP performed significant for RBC 1.58, Hg 5.1, Hct 17.4, MCV 110.2, PT 22.2, INR 2.2, APTT 33.6, Na 133, bicarb 20, BUN 58, Cr 2.12, Ca 8.2, total protein 5.3, alb 2.9. Lactic acid 1.0. Troponin < 0.012. BNP 6500. Flu, RSV, COVID negative. Stool occult blood positive. TSH 0.664. EKG AFib ventricular rate of 63. CXR mild pulmonary vascular congestion. Patient is ordered for 2 unit PRBC and admitted for GI evaluation. General: non toxic, no distress, appears at stated age Derm: warm, dry Head: atraumatic, normocephalic, symmetric Eyes: EOMI, no lid lag, pale sclera Mouth: no lip lesion, mucus membranes moist Cardiovascular: S1S2 irreg, no murmur Lungs: Decreased bilateral, no rhonchi, no rales , no accessory muscle use Abdominal: soft, nontender to palpation, no guarding, no appreciable organomegaly Ext: no gross muscle atrophy, no edema, no contractures Neuro: no focal neuro deficits Psych: Alert, oriented, appropriate affect Upper GI bleed: Stool occult blood +. Protonix 40 mg IV BID. Transfuse 2 unit PRBC. Repeat CBC tomorrow. Telemetry monitoring. Hold Xarelto. GI consulted. Supratherapeutic INR: Status post Kcentra and Vit K 5 mg IV. CARLOS on CKD: Worsened with GI bleed and volume depletion. Hold Aldactone. MEEK 04/2023 normal LV function. Start NS at 50 cc/hr. Monitor renal function. Hyponatremia: Likely related to volume depletion. IV hydration as above. Metabolic acidosis: Likely related to volume depletion. IV hydration as above. Atrial fibrillation: Atenolol 25 mg PO QD. Xarelto on hold. Hypothyroidism: Synthroid 75 mcg PO QD. COPD not in acute exacerbation Hypertension: Now hypotensive. Hold aldactone. Continue Atenolol as above if BP and HR permits. Dyslipidemia: Lipitor 40 mg PO QHS. Macular degeneration CODE STATUS: NO CODE DVT Prophylaxis: SCD GI Prophylaxis: Designated medical POA if patient is not able to make medical decisions for themselves: Son, I have reviewed the following home planning consultant salesperson notes: ED I have reviewed the results of the following tests: As above. I have ordered the following tests: As above. I have discussed the care of this patient with the following independent historian: RN, Son and . I have independently interpreted the following test below: EKG I have discussed the management of this patient with the following physician: Past Medical History Past Medical History: Atrial Fibrillation, COPD, Hyperlipidemia, Hypertension, Myocardial Infarction ([place]), Osteoarthritis ([place]), Thyroid Disorder Additional Past Medical History / Comment(s): HX [place] 1990/hx macular degeneration, urinary leakage. See Dr Matute's H&P Last Myocardial Infarction Date:: 1990 History of Any Multi-Drug Resistant Organisms: None Reported Past Surgical History: Cholecystectomy, Hysterectomy, Joint Replacement Additional Past Surgical History / Comment(s): Hx. right and left total knee replacements 2009, and 2011, bilateral shoulder repairs for tears in rotator cuffs 2008, and 2009 bilateral cataract surgeries, colon oscopy Past Anesthesia/Blood Transfusion Reactions: No Reported Reaction Past Psychological History: No Psychological Hx Reported Smoking Status: Former smoker, Light tobacco smoker Past Alcohol Use History: None Reported Past Drug Use History: None Reported - Past Family History Father Family Medical History: Myocardial Infarction ([place]) Mother Additional Family Medical History / Comment(s): mom from natural causes age 90 Sister(s) Family Medical History: Cancer Additional Family Medical History / Comment(s): sister- breast Medications and Allergies Home Medications Medication Instructions Recorded Confirmed Type Atorvastatin [Lipitor] 40 mg PO HS 06/16/15 10/31/23 History Magnesium 1,000 mg PO HS 06/16/15 10/31/23 History allopurinoL [Zyloprim] 300 mg PO DAILY 06/16/15 10/31/23 History Cyanocobalamin [Vitamin B-12] 500 mcg PO DAILY 04/17/23 10/31/23 History Levothyroxine Sodium [Synthroid] 75 mcg PO DAILY 04/17/23 10/31/23 History Rivaroxaban [Xarelto] 15 mg PO W/SUPPER 04/17/23 10/31/23 History Spironolactone 50 mg PO DAILY 04/17/23 10/31/23 History Unk Neuriva 1 tab PO DAILY 04/17/23 10/31/23 History Folic Acid 0.4 mg PO DAILY 10/31/23 10/31/23 History Vit C/E/Zn/Coppr/Lutein/Zeaxan 1 cap PO BID 10/31/23 10/31/23 History [Preservision Areds 2 Softgel] atenoloL [Tenormin] 25 mg PO DAILY 10/31/23 10/31/23 History Allergies Allergy/AdvReac Type Severity Reaction Status Date / Time aspirin Allergy Rash/Hives/ Verified 10/31/23 12:56 itching/bru ising Penicillins Allergy Rash/Hives/ Verified 10/31/23 12:56 itching/bru ising Physical Exam Vitals: Vital Signs Temp Pulse Pulse Resp BP Pulse Ox 10/31/23 14:54 54 L 16 119/59 100 10/31/23 13:52 61 20 108/72 98 10/31/23 13:40 60 20 108/72 99 10/31/23 13:02 58 L 10/31/23 12:55 54 L 16 99/34 100 10/31/23 11:05 97.7 F 60 22 114/71 100 Intake and Output 10/31/23 10/31/23 10/31/23 06:59 14:59 22:59 Other: Weight 81.647 kg Results CBC & Chem 7: 10/31/23 12:15 10/31/23 12:15 Labs: Abnormal Lab Results - Last 24 Hours (Table) 10/31/23 10/31/23 10/31/23 Range/Units 12:00 12:15 12:15 RBC 1.58 L (3.80-5.40) m/uL Hgb 5.1 L* (11.4-16.0) gm/dL Hct 17.4 L* (34.0-46.0) % MCV 110.2 H (80.0-100.0) fL MCHC 29.1 L (31.0-37.0) g/dL RDW 19.8 H (11.5-15.5) % Macrocytosis Marked A PT 22.2 H (10.0-12.5) sec INR 2.2 H (<1.2) APTT 33.6 H (22.0-30.0) sec Sodium (137-145) mmol/L Carbon Dioxide (22-30) mmol/L BUN (7-17) mg/dL Creatinine (0.52-1.04) mg/dL Calcium (8.4-10.2) mg/dL Total Protein (6.3-8.2) g/dL Albumin (3.5-5.0) g/dL Stool Occult Blood (Negative) Crossmatch See Detail 10/31/23 10/31/23 Range/Units 12:15 13:58 RBC (3.80-5.40) m/uL Hgb (11.4-16.0) gm/dL Hct (34.0-46.0) % MCV (80.0-100.0) fL MCHC (31.0-37.0) g/dL RDW (11.5-15.5) % Macrocytosis PT (10.0-12.5) sec INR (<1.2) APTT (22.0-30.0) sec Sodium 133 L (137-145) mmol/L Carbon Dioxide 20 L (22-30) mmol/L BUN 58 H (7-17) mg/dL Creatinine 2.12 H (0.52-1.04) mg/dL Calcium 8.2 L (8.4-10.2) mg/dL Total Protein 5.3 L (6.3-8.2) g/dL Albumin 2.9 L (3.5-5.0) g/dL Stool Occult Blood Positive H (Negative) Crossmatch
[2023-10-31] MEDS: SODIUM CHLORIDE 0.9% 1,000 ML IV SCH (16:28)
[2023-10-31 20:09] LABS: Appearance,Urine Cloudy (Clear); Bacteria,Urine Many /hpf; Bilirubin,Urine Negative (Negative); Blood,Urine Negative (Negative); Color,Urine Colorless; Glucose,Urine (UA) Negative (Negative); Hyaline Casts,Urine 8 /lpf (0-2); Ketones,Urine Negative (Negative); Leukocyte Esterase,Urine Large (Negative); Mucus,Urine Occasional /hpf; Nitrite,Urine Negative (Negative); Protein,Urine Negative (Negative); RBC,Urine 5 /hpf (0-5); Specific Gravity,Urine 1.014 (1.001-1.035); Squamous Epithelial Cell,Urine 4 /hpf (0-4); Urobilinogen,Urine <2.0 mg/dL (<2.0); WBC,Urine 9 /hpf (0-5)
[2023-10-31] MEDS: ATORVASTATIN 40 MG TAB PO SCH (23:11)
[2023-10-31] MEDS: PANTOPRAZOLE 40 MG/10 ML VIAL IV SCH (23:11)
[2023-11-01] LABS: Anisocytosis Moderate; HCT 23.6 % (34.0-46.0); Hypochromasia Moderate; MCH 32.7 pg (25.0-35.0); MCHC 32.5 g/dL (31.0-37.0); Macrocytosis Moderate; Platelet Count 166 k/uL (150-450); Poikilocytosis Slight; RBC 2.35 m/uL (3.80-5.40); RDW 20.6 % (11.5-15.5); WBC 9.5 k/uL (3.8-10.6)
[2023-11-01 00:10] LABS: HGB 7.7 gm/dL (11.4-16.0); MCV 100.7 fL (80.0-100.0)
[2023-11-01 00:18] LABS: INR 1.7 (<1.2); Prothrombin Time 17.4 sec (10.0-12.5)
[2023-11-01 04:24] LABS: % Iron Saturation 7.37 (12.00-45.00)
[2023-11-01] MEDS: LEVOTHYROXINE 75 MCG TAB PO SCH (06:22)
[2023-11-01] MEDS: atenoloL 25 MG TAB PO SCH (08:17)
[2023-11-01] MEDS ORDERED: PANTOPRAZOLE 40 MG/10 ML VIAL IV SCH (09:00)
[2023-11-01] MEDS ORDERED: SPIRONOLACTONE 25 MG TAB PO SCH (09:00)
[2023-11-01 13:20] LABS: Anisocytosis Moderate; HCT 23.7 % (34.0-46.0); HGB 7.5 gm/dL (11.4-16.0); Hypochromasia Marked; MCH 32.3 pg (25.0-35.0); MCHC 31.6 g/dL (31.0-37.0); MCV 102.1 fL (80.0-100.0); Macrocytosis Marked; Mean Platelet Volume 9.9; Platelet Count 150 k/uL (150-450); Poikilocytosis Moderate; RBC 2.32 m/uL (3.80-5.40); RDW 21.4 % (11.5-15.5); WBC 8.8 k/uL (3.8-10.6)
[2023-11-01 13:34] LABS: ALT 15 U/L (4-34); AST 33 U/L (14-36); African American GFR (CKD) 24 (>60 ml/min/1.73 sqM); Albumin 2.8 g/dL (3.5-5.0); Alkaline Phosphatase 99 U/L (38-126); Anion Gap 9 mmol/L; Blood Urea Nitrogen 52 mg/dL (7-17); Calcium 8.5 mg/dL (8.4-10.2); Carbon Dioxide 20 mmol/L (22-30); Chloride 104 mmol/L (98-107); Glucose 98 mg/dL (74-99); Non-African American GFR(CKD) 21 (>60 ml/min/1.73 sqM); Potassium 4.6 mmol/L (3.5-5.1); Sodium 133 mmol/L (137-145); Total Bilirubin 1.4 mg/dL (0.2-1.3); Total Protein 5.1 g/dL (6.3-8.2)
[2023-11-01] MEDS: FUROSEMIDE 10 MG/ML 2 ML VIAL IV ONE (14:25)
--- NOTE | 2023-11-01 14:41 | P.PN ---
Subjective Progress Note Date: 11/01/23 Hospital course: Patient is a pleasant 88-year-old female with a past medical history of CAD, hypertension, hyperlipidemia, atrial fibrillation on anticoagulation with Xarelto, COPD, chronic kidney disease, hypothyroidism, and macular degeneration. She presented to the emergency department on 10/31/2023 chief complaint of exertional shortness of breath, palpitations, and extreme fatigue and weakness. Upon arrival to our facility, patient underwent evaluation in the emergency department. Vital signs upon arrival show blood pressure 114/71, heart rate 60, respiratory rate 22, temp 97.7 F, and SpO2 of 100% on room air. Completed show ing atrial fibrillation with a controlled ventricular rate of 63 bpm. Chest x- ray showing diffuse interstitial and vascular prominence consistent with mild CHF and pulmonary vascular congestion with trace effusions. Labs were completed and reviewed. CBC showing acute blood loss anemia hemoglobin of 5.1 with baseline hemoglobin of 11. Coagulation profile showing elevated PT of 22.2, INR of 2.2, and PTT of 33.6. BMP showing hyponatremia with sodium of 133, hypocarbia with bicarb of 20 and an acute kidney injury CKD stage III with BUN of 58, creatinine of 2.12, GFR of 21 with baseline creatinine around 1.6. Lactic acid normal findings at 1.0. Magnesium 2.0. Iron profile showing iron of 25, TIBC of 339, and iron percent saturation of 7.37. Troponin was negative less than 0.012. proBNP 6500. Albumin 2.9. Vitamin B 12 1423.0, folate 40.00, and TSH of 0.664. Urinalysis negative for blood or infection. Occult stool was positive for blood. Influenza A, influenza B, RSV, and COVID PCR negative. Patient was then Kcentra and vitamin K followed by transfusion of 2 units PRBCs. She was admitted under our services with consultation to gastroenterology. Physical exam: Pt seen and fully evaluated at bedside this morning. Patient reports again this morning, she has mild abdominal tenderness upon palpation but states no pain at rest. She currently denies nausea or vomiting and denies noting any further episodes of melena or hematochezia.. She was visiting at bedside with at this time. Vital signs reviewed and stable. General: Nontoxic, no distress and appears stated age. Derm: Skin warm and dry, normal coloration for ethnicity. Head: Atraumatic, normocephalic and symmetric. Eyes: EOMs intact, no lid lag, and anicteric sclera Mouth: no lip lesions, mucus membranes moist Cardiovascular: Irregularly irregular, systolic murmur, positive posterior tibial pulses bilaterally, and cap refill < 2 seconds. Lungs: Respirations even, regular, and unlabored on room air. Lungs CTA bilaterally, no rhonchi, no rales, no wheezing, and no accessory muscle usage. Abdominal: soft, mild tenderness upon palpation to epigastric, right upper, and left lower quadrants., no guarding, no appreciable organomegaly Ext: ROM intact. No gross muscle atrophy, no edema, no contractures Neuro: Speech clear, face symmetrical and CN II-XII grossly intact with no noted focal neuro deficits Psych: Alert and oriented to person, place, time, and situation. Appropriate and pleasant affect. Assessment and Plan of Care: Acute Upper GI bleed: Acute Blood loss anemia secondary to GI bleed -Stool occult blood +. -Continue Protonix 40 mg IVP BID. -Status posttransfusion of 2 unit PRBCs hemoglobin stable at 7.7. -Close monitoring of CBC and transfuse as needed for hemoglobin less than 7. -Telemetry monitoring. -Hold Xarelto. -GI following and planning to take patient for EGD and colonoscopy on 11/02/2023. Supratherapeutic INR: Status post Kcentra and Vit K 5 mg IV. CARLOS on CKD stage IIIb: Worsened with GI bleed and volume depletion. Hold Aldactone. MEEK 04/2023 normal LV function. Start NS at 50 cc/hr. Monitor renal function. Hyponatremia: Likely related to volume depletion. IV hydration as above. Metabolic acidosis: Likely related to volume depletion. IV hydration as above. Atrial fibrillation: Atenolol 25 mg PO QD. Xarelto on hold. Hypothyroidism: Synthroid 75 mcg daily. COPD not in acute exacerbation Hypertension: Now hypotensive. Hold aldactone. Continue Atenolol as above if BP and HR permits. Dyslipidemia: Lipitor 40 mg PO QHS. Macular degeneration. Data and imaging reviewed: Labs completed and reviewed. CBC showing hemoglobin of 7.5. BMP showing uremia with sodium of 133, hypocarbia with bicarb of 20 and persistently elevated with BUN of 52, creatinine 2.10, and GFR of 21. Liver profile showing elevated total bili of 1.4. Vital signs reviewed and stable. Blood pressure 120/74, heart rate 54, res piratory rate 20, temp 98.3 F, and SpO2 of 98% on room air. CODE STATUS: DNR/DNI DVT prophylaxis: SCDs Anticipated discharge date: Clinical course to determine Anticipated discharge place: Clinical course to determine Patient was seen independently by Nurse Pracitioner. This document was prepared using [employer] dictation software. Please allow for errors in correction officer, while rare they do occur. Matt Ching NP rendered care for this patient independently, reviewed the findings and plan as documented in the note above. I did not physically speak with or examine the patient on this date. Objective - Vital Signs Vital signs: Vital Signs Temp 98.9 F 11/01/23 04:54 Pulse 57 L 11/01/23 04:54 Resp 19 11/01/23 04:54 BP 132/52 11/01/23 04:54 Pulse Ox 99 11/01/23 04:54 FiO2 Intake & Output 10/31/23 11/01/23 11/01/23 18:59 06:59 18:59 Intake Total 0 720 Balance 0 720 Weight 81.647 kg Intake: Blood Product 0 620 Rc As-1 Unit 310 [id number] Rc As-1 Unit 0 310 [id number] Other 100 Rc As-1 Unit 50 [id number] Rc As-1 Unit 50 [id number] - Labs CBC & Chem 7: 11/01/23 12:39 11/01/23 12:39 Labs: Abnormal Lab Results - Last 24 Hours (Table) 10/31/23 10/31/23 10/31/23 Range/Units 12:00 12:15 12:15 RBC 1.58 L (3.80-5.40) m/uL Hgb 5.1 L* (11.4-16.0) gm/dL Hct 17.4 L* (34.0-46.0) % MCV 110.2 H (80.0-100.0) fL MCHC 29.1 L (31.0-37.0) g/dL RDW 19.8 H (11.5-15.5) % Macrocytosis Marked A PT 22.2 H (10.0-12.5) sec INR 2.2 H (<1.2) APTT 33.6 H (22.0-30.0) sec Sodium (137-145) mmol/L Carbon Dioxide (22-30) mmol/L BUN (7-17) mg/dL Creatinine (0.52-1.04) mg/dL Calcium (8.4-10.2) mg/dL Iron (50-170) UG/DL % Saturation (12.00-45.00) Total Protein (6.3-8.2) g/dL Albumin (3.5-5.0) g/dL Vitamin B12 (200.0-944.0) pg/mL Folate (4.40-31.00) ng/mL Urine Appearance (Clear) Ur Leukocyte Esterase (Negative) Urine WBC (0-5) /hpf Urine Bacteria (None) /hpf Hyaline Casts (0-2) /lpf Urine Mucus (None) /hpf Stool Occult Blood (Negative) Crossmatch See Detail 10/31/23 10/31/23 10/31/23 Range/Units 12:15 12:15 12:15 RBC (3.80-5.40) m/uL Hgb (11.4-16.0) gm/dL Hct (34.0-46.0) % MCV (80.0-100.0) fL MCHC (31.0-37.0) g/dL RDW (11.5-15.5) % Macrocytosis PT (10.0-12.5) sec INR (<1.2) APTT (22.0-30.0) sec Sodium 133 L (137-145) mmol/L Carbon Dioxide 20 L (22-30) mmol/L BUN 58 H (7-17) mg/dL Creatinine 2.12 H (0.52-1.04) mg/dL Calcium 8.2 L (8.4-10.2) mg/dL Iron 25 L (50-170) UG/DL % Saturation 7.37 L (12.00-45.00) Total Protein 5.3 L (6.3-8.2) g/dL Albumin 2.9 L (3.5-5.0) g/dL Vitamin B12 1423.0 H (200.0-944.0) pg/mL Folate 40.00 H (4.40-31.00) ng/mL Urine Appearance (Clear) Ur Leukocyte Esterase (Negative) Urine WBC (0-5) /hpf Urine Bacteria (None) /hpf Hyaline Casts (0-2) /lpf Urine Mucus (None) /hpf Stool Occult Blood (Negative) Crossmatch 10/31/23 10/31/23 10/31/23 Range/Units 13:58 19:50 23:47 RBC 2.35 L (3.80-5.40) m/uL Hgb 7.7 L D (11.4-16.0) gm/dL Hct 23.6 L (34.0-46.0) % MCV 100.7 H D (80.0-100.0) fL MCHC (31.0-37.0) g/dL RDW 20.6 H (11.5-15.5) % Macrocytosis PT (10.0-12.5) sec INR (<1.2) APTT (22.0-30.0) sec Sodium (137-145) mmol/L Carbon Dioxide (22-30) mmol/L BUN (7-17) mg/dL Creatinine (0.52-1.04) mg/dL Calcium (8.4-10.2) mg/dL Iron (50-170) UG/DL % Saturation (12.00-45.00) Total Protein (6.3-8.2) g/dL Albumin (3.5-5.0) g/dL Vitamin B12 (200.0-944.0) pg/mL Folate (4.40-31.00) ng/mL Urine Appearance Cloudy H (Clear) Ur Leukocyte Esterase Large H (Negative) Urine WBC 9 H (0-5) /hpf Urine Bacteria Many H (None) /hpf Hyaline Casts 8 H (0-2) /lpf Urine Mucus Occasional H (None) /hpf Stool Occult Blood Positive H (Negative) Crossmatch 10/31/23 Range/Units 23:47 RBC (3.80-5.40) m/uL Hgb (11.4-16.0) gm/dL Hct (34.0-46.0) % MCV (80.0-100.0) fL MCHC (31.0-37.0) g/dL RDW (11.5-15.5) % Macrocytosis PT 17.4 H (10.0-12.5) sec INR 1.7 H (<1.2) APTT (22.0-30.0) sec Sodium (137-145) mmol/L Carbon Dioxide (22-30) mmol/L BUN (7-17) mg/dL Creatinine (0.52-1.04) mg/dL Calcium (8.4-10.2) mg/dL Iron (50-170) UG/DL % Saturation (12.00-45.00) Total Protein (6.3-8.2) g/dL Albumin (3.5-5.0) g/dL Vitamin B12 (200.0-944.0) pg/mL Folate (4.40-31.00) ng/mL Urine Appearance (Clear) Ur Leukocyte Esterase (Negative) Urine WBC (0-5) /hpf Urine Bacteria (None) /hpf Hyaline Casts (0-2) /lpf Urine Mucus (None) /hpf Stool Occult Blood (Negative) Crossmatch
--- NOTE | 2023-11-01 15:14 | P.CONS ---
History of Present Illness - Reason for Consult Consult date: 11/01/23 Anemia, GI bleed dark tarry stools Requesting physician: Shayne Camara - Chief Complaint Heart palpitations and shortness of breath - History of Present Illness This is a pleasant 88-year-old female with a history of coronary artery disease status post stenting, atrial fibrillation on Xarelto, chronic kidney disease, hypertension and hyperlipidemia. Patient presented to the emergency department with complaints of heart palpitations and shortness of breath. She had lab work done that showed a hemoglobin of 5.1 on admission. She was transfused with 2 units of blood with a repeat hemoglobin of 7.7. Patient had reported that she was having some dark stools for the last 5 days or so. She denies previous history of GI bleed. States she had a colonoscopy about 8 years ago no report available at this time. She denies any abdominal pain, nausea or vomiting. Currently no shortness of breath or chest pain. Last dose of Xarelto was Monday night. Review of Systems REVIEW OF SYSTEMS: CARDIOPULMONARY: No chest pain. Heart palpitations and shortness of breath. Gastrointestinal: Abdominal pain. No nausea or vomiting. No hematemesis, coffee-ground emesis. No rectal bleeding. Melena, reported as dark stool for the last 5 days duration. GENITOURINARY: No dysuria or hematuria. MUSCULOSKELETAL: Reports normal range of motion. SKIN: No rashes. No jaundice. ENDOCRINE: No chills, fevers. No excessive weight gain or loss. No polydipsia or polyuria. PSYCHIATRIC: Unremarkable. NEUROLOGY: No change in mental status. Denies dizziness, headache. ENT: Vision unremarkable. CONSTITUTIONAL: No recent weight loss. No fever, chills, night sweats. Past Medical History Past Medical History: Atrial Fibrillation, COPD, Hyperlipidemia, Hypertension, Myocardial Infarction ([place]), Osteoarthritis (OA), Thyroid Disorder Additional Past Medical History / Comment(s): HX [place] 1990/hx macular degeneration, urinary leakage. See Dr Matute's H&P Last Myocardial Infarction Date:: 1990 History of Any Multi-Drug Resistant Organisms: None Reported Past Surgical History: Cholecystectomy, Hysterectomy, Joint Replacement Additional Past Surgical History / Comment(s): Hx. right and left total knee replacements 2009, and 2011, bilateral shoulder repairs for tears in rotato r cuffs 2008, and 2007/ 2009 bilateral cataract surgeries, colonoscopy Past Anesthesia/Blood Transfusion Reactions: No Reported Reaction Past Psychological History: No Psychological Hx Reported Smoking Status: Former smoker, Light tobacco smoker Past Alcohol Use History: None Reported Past Drug Use History: None Reported - Past Family History Father Family Medical History: Myocardial Infarction ([place]) Mother Additional Family Medical History / Comment(s): mom from natural causes age 90 Sister(s) Family Medical History: Cancer Additional Family Medical History / Comment(s): sister- breast Medications and Allergies Home Medications Medication Instructions Recorded Confirmed Type Atorvastatin [Lipitor] 40 mg PO HS 06/16/15 10/31/23 History Magnesium 1,000 mg PO HS 06/16/15 10/31/23 History allopurinoL [Zyloprim] 300 mg PO DAILY 06/16/15 10/31/23 History Cyanocobalamin [Vitamin B-12] 500 mcg PO DAILY 04/17/23 10/31/23 History Levothyroxine Sodium [Synthroid] 75 mcg PO DAILY 04/17/23 10/31/23 History Rivaroxaban [Xarelto] 15 mg PO W/SUPPER 04/17/23 10/31/23 History Spironolactone 50 mg PO DAILY 04/17/23 10/31/23 History Unk Neuriva 1 tab PO DAILY 04/17/23 10/31/23 History Folic Acid 0.4 mg PO DAILY 10/31/23 10/31/23 History Vit C/E/Zn/Coppr/Lutein/Zeaxan 1 cap PO BID 10/31/23 10/31/23 History [Preservision Areds 2 Softgel] atenoloL [Tenormin] 25 mg PO DAILY 10/31/23 10/31/23 History Allergies Allergy/AdvReac Type Severity Reaction Status Date / Time aspirin Allergy Rash/Hives/ Verified 10/31/23 12:56 itching/bru ising Penicillins Allergy Rash/Hives/ Verified 10/31/23 12:56 itching/bru ising Physical Exam Vitals: Vital Signs Temp Pulse Pulse Resp BP Pulse Ox 11/01/23 04:54 98.9 F 57 L 19 132/52 99 11/01/23 02:07 59 L 13 97 10/31/23 23:20 57 L 16 129/68 99 10/31/23 22:10 97.3 F L 52 L 20 129/64 99 10/31/23 21:45 97.6 F 52 L 20 124/74 99 10/31/23 20:45 59 L 20 126/76 99 10/31/23 20:30 97.0 F L 54 L 20 99 10/31/23 20:15 97.8 F 51 L 18 112/54 99 10/31/23 20:00 97.3 F L 53 L 20 108/48 98 10/31/23 17:35 97.6 F 58 L 20 107/46 98 10/31/23 17:05 97.4 F L 58 L 20 106/54 99 10/31/23 16:35 97.5 F L 52 L 20 110/65 98 10/31/23 16:20 97.5 F L 64 20 108/51 98 10/31/23 16:05 97.7 F 50 L 20 112/44 99 10/31/23 14:54 54 L 16 119/59 100 10/31/23 13:52 61 20 108/72 98 10/31/23 13:40 60 20 108/72 99 10/31/23 13:02 58 L 10/31/23 12:55 54 L 16 99/34 100 10/31/23 11:05 97.7 F 60 22 114/71 100 Intake and Output 10/31/23 11/01/23 11/01/23 22:59 06:59 14:59 Intake Total 720 Balance 720 Intake: Blood Product 620 Rc As-1 Unit 310 [id number] Rc As-1 Unit 310 [id number] Other 100 Rc As-1 Unit 50 [id number] Rc As-1 Unit 50 [id number] General appearance: The patient is alert, oriented, appears in no acute distress. HET: Head is normocephalic and atraumatic. Conjunctiva pink. Sclera anicteric. Neck: Supple without lymphadenopathy. Trachea midline. Heart: Regular. Lungs: Equal expansion, normal respiratory effort. Abdomen: Soft, nontender, nondistended. Skin: No rashes. No jaundice. Extremities: Normal skin color and turgor. No pedal edema. Neurological: No focal deficits. Alert and oriented x3. Results CBC & Chem 7: 11/01/23 12:39 11/01/23 12:39 Labs: Abnormal Lab Results - Last 24 Hours (Table) 10/31/23 10/31/23 10/31/23 Range/Units 12:00 12:15 12:15 RBC 1.58 L (3.80-5.40) m/uL Hgb 5.1 L* (11.4-16.0) gm/dL Hct 17.4 L* (34.0-46.0) % MCV 110.2 H (80.0-100.0) fL MCHC 29.1 L (31.0-37.0) g/dL RDW 19.8 H (11.5-15.5) % Macrocytosis Marked A PT 22.2 H (10.0-12.5) sec INR 2.2 H (<1.2) APTT 33.6 H (22.0-30.0) sec Sodium (137-145) mmol/L Carbon Dioxide (22-30) mmol/L BUN (7-17) mg/dL Creatinine (0.52-1.04) mg/dL Calcium (8.4-10.2) mg/dL Iron (50-170) UG/DL % Saturation (12.00-45.00) Total Protein (6.3-8.2) g/dL Albumin (3.5-5.0) g/dL Vitamin B12 (200.0-944.0) pg/mL Folate (4.40-31.00) ng/mL Urine Appearance (Clear) Ur Leukocyte Esterase (Negative) Urine WBC (0-5) /hpf Urine Bacteria (None) /hpf Hyaline Casts (0-2) /lpf Urine Mucus (None) /hpf Stool Occult Blood (Negative) Crossmatch See Detail 10/31/23 10/31/23 10/31/23 Range/Units 12:15 12:15 12:15 RBC (3.80-5.40) m/uL Hgb (11.4-16.0) gm/dL Hct (34.0-46.0) % MCV (80.0-100.0) fL MCHC (31.0-37.0) g/dL RDW (11.5-15.5) % Macrocytosis PT (10.0-12.5) sec INR (<1.2) APTT (22.0-30.0) sec Sodium 133 L (137-145) mmol/L Carbon Dioxide 20 L (22-30) mmol/L BUN 58 H (7-17) mg/dL Creatinine 2.12 H (0.52-1.04) mg/dL Calcium 8.2 L (8.4-10.2) mg/dL Iron 25 L (50-170) UG/DL % Saturation 7.37 L (12.00-45.00) Total Protein 5.3 L (6.3-8.2) g/dL Albumin 2.9 L (3.5-5.0) g/dL Vitamin B12 1423.0 H (200.0-944.0) pg/mL Folate 40.00 H (4.40-31.00) ng/mL Urine Appearance (Clear) Ur Leukocyte Esterase (Negative) Urine WBC (0-5) /hpf Urine Bacteria (None) /hpf Hyaline Casts (0-2) /lpf Urine Mucus (None) /hpf Stool Occult Blood (Negative) Crossmatch 10/31/23 10/31/23 10/31/23 Range/Units 13:58 19:50 23:47 RBC 2.35 L (3.80-5.40) m/uL Hgb 7.7 L D (11.4-16.0) gm/dL Hct 23.6 L (34.0-46.0) % MCV 100.7 H D (80.0-100.0) fL MCHC (31.0-37.0) g/dL RDW 20.6 H (11.5-15.5) % Macrocytosis PT (10.0-12.5) sec INR (<1.2) APTT (22.0-30.0) sec Sodium (137-145) mmol/L Carbon Dioxide (22-30) mmol/L BUN (7-17) mg/dL Creatinine (0.52-1.04) mg/dL Calcium (8.4-10.2) mg/dL Iron (50-170) UG/DL % Saturation (12.00-45.00) Total Protein (6.3-8.2) g/dL Albumin (3.5-5.0) g/dL Vitamin B12 (200.0-944.0) pg/mL Folate (4.40-31.00) ng/mL Urine Appearance Cloudy H (Clear) Ur Leukocyte Esterase Large H (Negative) Urine WBC 9 H (0-5) /hpf Urine Bacteria Many H (None) /hpf Hyaline Casts 8 H (0-2) /lpf Urine Mucus Occasional H (None) /hpf Stool Occult Blood Positive H (Negative) Crossmatch 10/31/23 Range/Units 23:47 RBC (3.80-5.40) m/uL Hgb (11.4-16.0) gm/dL Hct (34.0-46.0) % MCV (80.0-100.0) fL MCHC (31.0-37.0) g/dL RDW (11.5-15.5) % Macrocytosis PT 17.4 H (10.0-12.5) sec INR 1.7 H (<1.2) APTT (22.0-30.0) sec Sodium (137-145) mmol/L Carbon Dioxide (22-30) mmol/L BUN (7-17) mg/dL Creatinine (0.52-1.04) mg/dL Calcium (8.4-10.2) mg/dL Iron (50-170) UG/DL % Saturation (12.00-45.00) Total Protein (6.3-8.2) g/dL Albumin (3.5-5.0) g/dL Vitamin B12 (200.0-944.0) pg/mL Folate (4.40-31.00) ng/mL Urine Appearance (Clear) Ur Leukocyte Esterase (Negative) Urine WBC (0-5) /hpf Urine Bacteria (None) /hpf Hyaline Casts (0-2) /lpf Urine Mucus (None) /hpf Stool Occult Blood (Negative) Crossmatch Comments: Chest x-ray reports consider mild CHF and pulmonary vascular congestion. Trace effusions on the lateral view. Assessment and Plan (1) Symptomatic anemia Narrative/Plan: 88-year-old female presenting with heart palpitations and shortness of breath found to be quite anemic with a hemoglobin of 5.1. This is a patient with atrial fibrillation on Xarelto reporting black stools for the last 5 days or so. Patient likely with upper GI bleed however with drop in hemoglobin as low as 5.1 and last colonoscopy 8 years ago would recommend evaluation with both upper and lower endoscopy. Patient is agreeable. Current Visit: Yes Status: Acute Code(s): D64.9 - ANEMIA, UNSPECIFIED SNOMED Code(s): 276208829 (2) Melena Current Visit: Yes Status: Acute Code(s): K92.1 - MELENA SNOMED Code(s): 5265178 (3) Coronary artery disease Current Visit: Yes Status: Acute Code(s): I25.10 - ATHSCL HEART DISEASE OF [place] CORONARY ARTERY W/O ANG PCTRS SNOMED Code(s): 05959359 (4) Atrial fibrillation Current Visit: Yes Status: Acute Code(s): I48.91 - UNSPECIFIED ATRIAL FIBRILLATION SNOMED Code(s): 42472323 (5) CKD (chronic kidney disease) Current Visit: Yes Status: Acute Code(s): N18.9 - CHRONIC KIDNEY DISEASE, UNSPECIFIED SNOMED Code(s): 888572476 Plan: 1. Continue symptomatic and supportive care 2. Clear liquid diet n.p.o. after midnight 3. Hold Xarelto 4. Bowel prep this evening 5. Daily CBC, transfuse for hemoglobin less than 7 6. Plan for EGD and colonoscopy tomorrow 7. Patient will need to be made a full code prior to going to endoscopy Thank you for this consultation, we will continue to follow. Dr. Quinten Barrientos I agree with the dictator's note, documented as a scribe by Alessandra Jordan.
--- NOTE | 2023-11-01 15:35 | CT ---
EXAMINATION TYPE: CT brain wo con DATE OF EXAM: 11/01/2023 COMPARISON: None HISTORY: vision changes, macular disease CT DLP: 1146.[address] of the brain was performed. The ventricles, basal cisterns and sulci overlying the cerebral convexities demonstrate mild enlargem ent. There is no evidence for intracranial hemorrhage or sulcal effacement. There is decreased attenuation about the periventricular white matter and deep white matter of both c erebral hemispheres, compatible with chronic small vessel ischemia. Differential diagnosis does inclu de demyelination. Interhemispheric lipoma noted. No mass effects are seen.No midline shift. Osseous calvarium is intact. Hyperostosis noted. If symptoms persist consider MRI. IMPRESSION: 1. Age related atrophic and chronic small vessel ischemic change without acute intracranial process s een at this time.
[2023-11-01] MEDS: PEG 3350 (236 GM/BTL) + LYTES 4,000 ML BOTTLE PO ONE (16:43)
[2023-11-01 18:08] LABS: Anisocytosis Moderate; HCT 27.2 % (34.0-46.0); HGB 8.5 gm/dL (11.4-16.0); Hypochromasia Marked; MCH 32.1 pg (25.0-35.0); MCHC 31.3 g/dL (31.0-37.0); MCV 102.4 fL (80.0-100.0); Macrocytosis Marked; Mean Platelet Volume 9.9; Platelet Count 190 k/uL (150-450); Poikilocytosis Moderate; RBC 2.66 m/uL (3.80-5.40); RDW 21.1 % (11.5-15.5); WBC 9.8 k/uL (3.8-10.6)
[2023-11-02] MEDS: ONDANSETRON ODT 4 MG TAB PO STA (00:15)
[2023-11-02 00:29] LABS: Anisocytosis Moderate; HCT 26.5 % (34.0-46.0); HGB 8.1 gm/dL (11.4-16.0); Hypochromasia Marked; MCHC 30.5 g/dL (31.0-37.0); MCV 101.4 fL (80.0-100.0); Macrocytosis Moderate; Mean Platelet Volume 8.7; Platelet Count 152 k/uL (150-450); Poikilocytosis Moderate; RBC 2.61 m/uL (3.80-5.40); RDW 20.2 % (11.5-15.5); WBC 8.5 k/uL (3.8-10.6)
[2023-11-02 10:45] LABS: Anisocytosis Moderate; HCT 26.3 % (34.0-46.0); Hypochromasia Marked; MCH 31.8 pg (25.0-35.0); MCHC 30.4 g/dL (31.0-37.0); MCV 104.6 fL (80.0-100.0); Macrocytosis Marked; Mean Platelet Volume 8.5; Platelet Count 192 k/uL (150-450); Poikilocytosis Moderate; RBC 2.52 m/uL (3.80-5.40); RDW 20.8 % (11.5-15.5); WBC 9.7 k/uL (3.8-10.6)
[2023-11-02 10:59] LABS: African American GFR (CKD) 25 (>60 ml/min/1.73 sqM); Anion Gap 9 mmol/L; Blood Urea Nitrogen 49 mg/dL (7-17); Blood Urea Nitrogen 50 mg/dL (7-17); Calcium 8.5 mg/dL (8.4-10.2); Calcium 8.6 mg/dL (8.4-10.2); Carbon Dioxide 19 mmol/L (22-30); Chloride 104 mmol/L (98-107); Glucose 90 mg/dL (74-99); Magnesium 1.7 mg/dL (1.6-2.3); Non-African American GFR(CKD) 21 (>60 ml/min/1.73 sqM); Non-African American GFR(CKD) 22 (>60 ml/min/1.73 sqM); Potassium 4.7 mmol/L (3.5-5.1); Sodium 132 mmol/L (137-145)
--- NOTE | 2023-11-02 11:38 | P.PN ---
Subjective Progress Note Date: 11/02/23 Hospital course: Patient is a pleasant 88-year-old female with a past medical history of CAD, hypertension, hyperlipidemia, atrial fibrillation on anticoagulation with Xarelto, COPD, chronic kidney disease, hypothyroidism, and macular degeneration. She presented to the emergency department on 10/31/2023 chief complaint of exertional shortness of breath, palpitations, and extreme fatigue and weakness. Upon arrival to our facility, patient underwent evaluation in the emergency department. Vital signs upon arrival show blood pressure 114/71, heart rate 60, respiratory rate 22, temp 97.7 F, and SpO2 of 100% on room air. Completed show ing atrial fibrillation with a controlled ventricular rate of 63 bpm. Chest x- ray showing diffuse interstitial and vascular prominence consistent with mild CHF and pulmonary vascular congestion with trace effusions. Labs were completed and reviewed. CBC showing acute blood loss anemia hemoglobin of 5.1 with baseline hemoglobin of 11. Coagulation profile showing elevated PT of 22.2, INR of 2.2, and PTT of 33.6. BMP showing hyponatremia with sodium of 133, hypocarbia with bicarb of 20 and an acute kidney injury CKD stage III with BUN of 58, creatinine of 2.12, GFR of 21 with baseline creatinine around 1.6. Lactic acid normal findings at 1.0. Magnesium 2.0. Iron profile showing iron of 25, TIBC of 339, and iron percent saturation of 7.37. Troponin was negative less than 0.012. proBNP 6500. Albumin 2.9. Vitamin B 12 1423.0, folate 40.00, and TSH of 0.664. Urinalysis negative for blood or infection. Occult stool was positive for blood. Influenza A, influenza B, RSV, and COVID PCR negative. Patient was then Kcentra and vitamin K followed by transfusion of 2 units PRBCs. She was admitted under our services with consultation to gastroenterology. Physical exam: Pt seen and fully evaluated at bedside this morning. She reports continued episode of bright red blood per rectum this morning and throughout the night after drinking prep for colonoscopy scheduled later today. She reports pain only to right upper and epigastric region and denies any episodes of nausea or vomiting. Patient reports full resolution of previous reported blurred vision out of right eye and red/blue/green floating spots/flashing spots. Vital signs reviewed and stable. General: Nontoxic, no distress and appears stated age. Derm: Skin warm and dry, normal coloration for ethnicity. Head: Atraumatic, normocephalic and symmetric. Eyes: EOMs intact, no lid lag, and anicteric sclera Mouth: no lip lesions, mucus membranes moist Cardiovascular: Irregularly irregular, systolic murmur, positive posterior t ibial pulses bilaterally, and cap refill < 2 seconds. Lungs: Respirations even, regular, and unlabored on room air. Lungs CTA bilaterally, no rhonchi, no rales, no wheezing, and no accessory muscle usage. Abdominal: soft, mild tenderness upon palpation to epigastric and right upper quadrant, no guarding, no appreciable organomegaly Ext: ROM intact. No gross muscle atrophy, no edema, no contractures Neuro: Speech clear, face symmetrical and CN II-XII grossly intact with no noted focal neuro deficits Psych: Alert and oriented to person, place, time, and situation. Appropriate and pleasant affect. Assessment and Plan of Care: Acute Upper GI bleed: Acute Blood loss anemia secondary to GI bleed -Stool occult blood +. -Continue Protonix 40 mg IVP BID. -Status posttransfusion of 2 unit PRBCs hemoglobin stable at 8.0. -Close monitoring of CBC and transfuse as needed for hemoglobin less than 7. -Telemetry monitoring. -Hold Xarelto. -GI following and planning to take patient for EGD and colonoscopy on 11/02/2023. Skin episode of blurred vision flashing lights/spots in right eye: CT head negative for acute process. Vital signs stable. Continue neurochecks every 4 hours. Consult placed to neurology for evaluation. Supratherapeutic INR: Status post Kcentra and Vit K 5 mg IV. CARLOS on CKD stage IIIb: Worsened with GI bleed and volume depletion. Hold Aldactone. MEEK 04/2023 normal LV function. Start NS at 50 cc/hr. Monitor renal function. Hyponatremia: Likely related to volume depletion. IV hydration as above. Metabolic acidosis: Likely related to volume depletion. IV hydration as above. Atrial fibrillation: Atenolol 25 mg PO QD. Xarelto on hold. Hypothyroidism: Synthroid 75 mcg daily. COPD not in acute exacerbation Hypertension: Now hypotensive. Hold aldactone. Continue Atenolol as above if BP and HR permits. Dyslipidemia: Lipitor 40 mg PO QHS. Macular degeneration. Recommend continued outpatient follow-up with oph thalmologist outpatient. Data and imaging reviewed: Labs completed and reviewed. CBC showing hemoglobin of 8.0 and MCV of 104.6. BMP showing hyponatremia with sodium of 132, hypocarbia with bicarb of 19, and persistently elevated renal function with BUN of 49, creatinine 2.06, and GFR of 21. Magnesium was slightly low at 1.7 and replaced with Mag-Ox 400 mg x 1 dose. Vital signs reviewed. Blood pressure 117/72, heart rate 61, respiratory rate 16, and SpO2 of 99% on room air. CODE STATUS: DNR/DNI DVT prophylaxis: SCDs Anticipated discharge date: Clinical course to determine Anticipated discharge place: Clinical course to determine Patient was seen independently by Nurse Pracitioner. This document was prepared using [employer] dictation software. Please allow for errors in decorating kiln operator, while rare they do occur. Matt Ching DIRECTOR VISUAL rendered care for this patient independently, reviewed the fin dings and plan as documented in the note above. I did not physically speak with or examine the patient on this date. Objective - Vital Signs Vital signs: Vital Signs Temp 97.9 F 11/01/23 20:00 Pulse 61 11/02/23 00:00 Resp 18 11/02/23 00:00 BP 136/73 11/02/23 00:00 Pulse Ox 99 11/02/23 00:00 FiO2 Intake & Output 11/01/23 11/02/23 11/02/23 18:59 06:59 18:59 Intake Total 200 540 Balance 200 540 Intake: Oral 200 540 Other: Voiding Method Toilet # Bowel Movements 2 3 - Labs CBC & Chem 7: 11/02/23 10:24 11/02/23 10:24 Labs: Abnormal Lab Results - Last 24 Hours (Table) 11/01/23 11/01/23 11/01/23 Range/Units 12:39 12:39 17:52 RBC 2.32 L 2.66 L (3.80-5.40) m/uL Hgb 7.5 L 8.5 L (11.4-16.0) gm/dL Hct 23.7 L 27.2 L (34.0-46.0) % MCV 102.1 H 102.4 H (80.0-100.0) fL MCHC (31.0-37.0) g/dL RDW 21.4 H 21.1 H (11.5-15.5) % Macrocytosis Marked A Marked A Sodium 133 L (137-145) mmol/L Carbon Dioxide 20 L (22-30) mmol/L BUN 52 H (7-17) mg/dL Creatinine 2.10 H (0.52-1.04) mg/dL Total Bilirubin 1.4 H (0.2-1.3) mg/dL Total Protein 5.1 L (6.3-8.2) g/dL Albumin 2.8 L (3.5-5.0) g/dL 11/01/23 Range/Units 23:49 RBC 2.61 L (3.80-5.40) m/uL Hgb 8.1 L (11.4-16.0) gm/dL Hct 26.5 L (34.0-46.0) % MCV 101.4 H (80.0-100.0) fL MCHC 30.5 L (31.0-37.0) g/dL RDW 20.2 H (11.5-15.5) % Macrocytosis Sodium (137-145) mmol/L Carbon Dioxide (22-30) mmol/L BUN (7-17) mg/dL Creatinine (0.52-1.04) mg/dL Total Bilirubin (0.2-1.3) mg/dL Total Protein (6.3-8.2) g/dL Albumin (3.5-5.0) g/dL
[2023-11-02] MEDS: LACTATED RINGERS 1,000 ML IV ONE (13:29)
[2023-11-02] MEDS ORDERED: PROPOFOL 10 MG/ML 20 ML VIAL IV ONE (13:30)
[2023-11-02] MEDS ORDERED: LIDOCAINE 1% INJ 10MG/ML (20 ML MDV) ONE (13:30)
--- NOTE | 2023-11-02 13:32 | P.CNNES ---
History of Present Illness Consult date: 11/02/23 Requesting physician: Matt Ching Reason for Consult: right eye blurred vision and seeing spots after receiving kcentra History of Present Illness: Patient is a 88-year-old female came to the hospital by ambulance 2 days ago, 10/31/2023 at 10:29 AM. As per EMS flowsheet, when they arrived for dizziness, chest pain and increased weakness for 5 days. Patient was alert and oriented x 4 with GCS of 15 and speaking complete sentences. Patient denied having any chest pain, dizziness or nausea at that time. Patient reports having most of her symptoms whenever she has to walk around for any length of time. Patient reports vomiting prior to EMS arrival. Patient has history of atrial fibrillation and chronic renal disease. Patient also states "my legs almost gave out from under me the other day and I do not know why this is happening". Patient appeared to be dehydrated with dry tongue, positive skin turgor and admits to not drinking enough water. Patient's vitals at the scene was blood pressure 125/39, pulse rate 65, respirations 16, saturation 98% Patient's EKG showed atrial fibrillation chest x-ray showed consider mild CHF and pulmonary vascular congestion. Trace effusion on the lateral view. CT head revealed age-related atrophic and chronic small vessel ischemic change without acute intracranial process seen at this time. I personally reviewed CT head, agree with the findings. Patient's blood test on arrival showed WBC 8.7 hemoglobin 5.1, platelets 204. INR 2.2, PTT 33.6. Sodium 133 potassium is normal, BUN 58 creatinine 2.12. Hepatic panel is normal. B12 1423, folate 40. TSH is normal. UA is negative. Stool occult blood positive. Influenza, RSV a nd coronavirus PCR negative. Her most recent hemoglobin is 8.0. Patient has history of macular degeneration. Patient received Kcentra to reverse anticoagulation yesterday because of GI bleed. Patient saw some pinpoint dots in her vision that lasted for only a few seconds. She was concerned if she was having any retinal hemorrhage like she had before. However the symptoms went away. This prompted neurology consultation. At present she is fine. Patient is undergoing EGD and colonoscopy. Patient denies any associated focal neurological symptoms like slurred speech, facial droop, loss of vision or any focal weakness numbness or tingling. Home medications include Xarelto 15 mg daily, Synthroid, Aldactone, B12, atenolol, folic acid, allopurinol, Lipitor 40 mg and magnesium. Review of Systems All review of system reviewed, unremarkable except as per pertinent positive and negative mentioned in HPI. She does feel tired. Patient has decreased hearing. Past Medical History Past Medical History: Atrial Fibrillation, COPD, Hyperlipidemia, Hypertension, Myocardial Infarction (NM), Osteoarthritis (OA), Thyroid Disorder Additional Past Medical History / Comment(s): HX NM 1990/hx macular degeneration, urinary leakage. See Dr Matute's H&P Last Myocardial Infarction Date:: 1990 History of Any Multi-Drug Resistant Organisms: None Reported Past Surgical History: Cholecystectomy, Hysterectomy, Joint Replacement Additional Past Surgical History / Comment(s): Hx. right and left total knee replacements 2009, and 2011, bilateral shoulder repairs for tears in rotator cuffs 2008, and 2009 bilateral cataract surgeries, colonoscopy Past Anesthesia/Blood Transfusion Reactions: No Reported Reaction Past Psychological History: No Psychological Hx Reported Smoking Status: Former smoker, Light tobacco smoker Past Alcohol Use History: None Reported Past Drug Use History: None Reported - Past Family History Father Family Medical History: Myocardial Infarction (NM) Mother Additional Family Medical History / Comment(s): mom from natural causes age 90 Sister(s) Family Medical History: Cancer Additional Family Medical History / Comment(s): sister- breast Medications and Allergies Home Medications Medication Instructions Recorded Confirmed Type Atorvastatin [Lipitor] 40 mg PO HS 06/16/15 10/31/23 History Magnesium 1,000 mg PO HS 06/16/15 10/31/23 History allopurinoL [Zyloprim] 300 mg PO DAILY 06/16/15 10/31/23 History Cyanocobalamin [Vitamin B-12] 500 mcg PO DAILY 04/17/23 10/31/23 History Levothyroxine Sodium [Synthroid] 75 mcg PO DAILY 04/17/23 10/31/23 History Rivaroxaban [Xarelto] 15 mg PO W/SUPPER 04/17/23 10/31/23 History Spironolactone 50 mg PO DAILY 04/17/23 10/31/23 History Unk Neuriva 1 tab PO DAILY 04/17/23 10/31/23 History Folic Acid 0.4 mg PO DAILY 10/31/23 10/31/23 History Vit C/E/Zn/Coppr/Lutein/Zeaxan 1 cap PO BID 10/31/23 10/31/23 History [Preservision Areds 2 Softgel] atenoloL [Tenormin] 25 mg PO DAILY 10/31/23 10/31/23 History Allergies Allergy/AdvReac Type Severity Reaction Status Date / Time aspirin Allergy Rash/Hives/ Verified 10/31/23 12:56 itching/bru ising Penicillins Allergy Rash/Hives/ Verified 10/31/23 12:56 itching/bru ising Physical Examination - Vital Signs Vital Signs: Vital Signs Temp Pulse Pulse Resp BP BP Pulse Ox 11/02/23 00:00 61 18 136/73 99 11/01/23 20:00 97.9 F 70 18 125/77 100 11/01/23 16:11 66 22 132/66 98 11/01/23 16:00 60 16 132/72 100 11/01/23 14:32 52 L 22 117/53 100 11/01/23 13:10 57 L 22 120/74 100 Intake and Output 11/01/23 11/02/23 11/02/23 22:59 06:59 14:59 Intake Total 200 540 Balance 200 540 Intake: Oral 200 540 Other: Voiding Method Toilet Toilet # Bowel Movements 2 3 Patient is an elderly female, very pleasant, in no acute distress. Patient is alert awake oriented to time place and person. Patient knows it is [facility]. She knows it is 11/02/2023. Speech and language functions are normal. Patient can name and repeat very well. No aphasia or dysarthria. Attention, concentration and fund of knowledge is adequate. On cranial nerve examination, pupils are equal, round and reacting to light, visual hassan are full on confrontation, with no neglect on double simultaneous stimulation. Extraocular muscles are intact with no nystagmus. Face is symmetric, tongue protrudes to the midline. Palatal elevation and sensation normal, hearing and shoulder shrug normal, facial sensation normal. On muscle strength testing, there is no pronator drift and the strength is normal in arms and legs distally and proximally. Shoulders are weak bilaterally from previous rotator cuff injuries. Deep tendon reflexes are symmetric hypoactive 1 all over and plantars downgoing. Sensory to touch is equal with no neglect on double simultaneous stimulation. Cerebellar function showed no ataxia for [id number] testing. No dysdiadochokinesia. Tone and bulk of muscles normal. Gait: Patient walks with a stooped. On general examination, there is no carotid bruit or murmur, S1-S2 audible. Chest is clear on consultation. Abdomen is soft nontender. No organomegaly, bowel sounds present. Peripheral pulses are present. No peripheral edema. Results - Laboratory Findings CBC and BMP: 11/02/23 10:24 11/02/23 10:24 Abnormal Lab Findings: Abnormal Labs 10/31/23 10/31/23 10/31/23 12:00 12:15 12:15 RBC 1.58 L Hgb 5.1 L* Hct 17.4 L* MCV 110.2 H MCHC 29.1 L RDW 19.8 H Macrocytosis Marked A PT 22.2 H INR 2.2 H APTT 33.6 H Sodium Carbon Dioxide BUN Creatinine Calcium Iron % Saturation Total Bilirubin Total Protein Albumin Vitamin B12 Folate Urine Appearance Ur Leukocyte Esterase Urine WBC Urine Bacteria Hyaline Casts Urine Mucus Stool Occult Blood Crossmatch See Detail 10/31/23 10/31/23 10/31/23 12:15 12:15 12:15 RBC Hgb Hct MCV MCHC RDW Macrocytosis PT INR APTT Sodium 133 L Carbon Dioxide 20 L BUN 58 H Creatinine 2.12 H Calcium 8.2 L Iron 25 L % Saturation 7.37 L Total Bilirubin Total Protein 5.3 L Albumin 2.9 L Vitamin B12 1423.0 H Folate 40.00 H Urine Appearance Ur Leukocyte Esterase Urine WBC Urine Bacteria Hyaline Casts Urine Mucus Stool Occult Blood Crossmatch 10/31/23 10/31/23 10/31/23 13:58 19:50 23:47 RBC 2.35 L Hgb 7.7 L D Hct 23.6 L MCV 100.7 H D MCHC RDW 20.6 H Macrocytosis PT INR APTT Sodium Carbon Dioxide BUN Creatinine Calcium Iron % Saturation Total Bilirubin Total Protein Albumin Vitamin B12 Folate Urine Appearance Cloudy H Ur Leukocyte Esterase Large H Urine WBC 9 H Urine Bacteria Many H Hyaline Casts 8 H Urine Mucus Occasional H Stool Occult Blood Positive H Crossmatch 10/31/23 11/01/23 11/01/23 23:47 12:39 12:39 RBC 2.32 L Hgb 7.5 L Hct 23.7 L MCV 102.1 H MCHC RDW 21.4 H Macrocytosis Marked A PT 17.4 H INR 1.7 H APTT Sodium 133 L Carbon Dioxide 20 L BUN 52 H Creatinine 2.10 H Calcium Iron % Saturation Total Bilirubin 1.4 H Total Protein 5.1 L Albumin 2.8 L Vitamin B12 Folate Urine Appearance Ur Leukocyte Esterase Urine WBC Urine Bacteria Hyaline Casts Urine Mucus Stool Occult Blood Crossmatch 11/01/23 11/01/23 11/02/23 17:52 23:49 10:24 RBC 2.66 L 2.61 L Hgb 8.5 L 8.1 L Hct 27.2 L 26.5 L MCV 102.4 H 101.4 H MCHC 30.5 L RDW 21.1 H 20.2 H Macrocytosis Marked A PT INR APTT Sodium 132 L Carbon Dioxide 19 L BUN 50 H Creatinine 2.03 H Calcium Iron % Saturation Total Bilirubin Total Protein Albumin Vitamin B12 Folate Urine Appearance Ur Leukocyte Esterase Urine WBC Urine Bacteria Hyaline Casts Urine Mucus Stool Occult Blood Crossmatch 11/02/23 11/02/23 10:24 10:24 RBC 2.52 L Hgb 8.0 L Hct 26.3 L MCV 104.6 H MCHC 30.4 L RDW 20.8 H Macrocytosis Marked A PT INR APTT Sodium 132 L Carbon Dioxide 19 L BUN 49 H Creatinine 2.06 H Calcium Iron % Saturation Total Bilirubin Total Protein Albumin Vitamin B12 Folate Urine Appearance Ur Leukocyte Esterase Urine WBC Urine Bacteria Hyaline Casts Urine Mucus Stool Occult Blood Crossmatch Assessment and Plan Assessment: * Transient visual disturbance, lasting for a few seconds, unclear cause. No other associated focal neurological symptoms, therefore doubt TIA. * Atrial fibrillation, on Xarelto. * Severe anemia with hemoglobin 5.1, with positive stool occult blood. * History of macular degeneration * Anemia * Hyponatremia * Acute on chronic renal failure * Hypertension * Hyperlipidemia * CAD Plan: * Patient undergoing EGD and colonoscopy for possible GI bleed. * Resume Xarelto, when cleared by GI, for atrial fibrillation. * Patient does have macular degeneration. Recommend follow-up with binder and wrapper packer outpatient. * CT head revealed no acute process. * Check carotid Doppler, rule out carotid stenosis. * Neurologically otherwise clear. Thank you for the consult. Addendum: Carotid Doppler revealed mildly elevated velocities within the proximal left ICA could reflect turbulent flow versus a moderate (50 to 69%) proximal ICA stenosis. Antegrade flow in both vertebral arteries. Other recommendations as above.
--- NOTE | 2023-11-02 13:52 | P.PCN ---
Date of Procedure: 11/02/23 Procedure(s) Performed: Brief history: Patient is a pleasant 88-year-old white female admitted to hospital with severe symptomatic anemia and hemoglobin of 5 g/dL requiring 2 unit of PRBC consultation. She has been having intermittent darker stools. She has been on Xarelto for A-fib which is currently on hold for 2 days. She is scheduled for an upper endoscopy as well as colonoscopy to evaluate for source of recent GI bleed Procedure performed: Esophagogastroduodenoscopy with biopsy Colonoscopy Preoperative diagnosis: Symptomatic anemia and black tarry stools Anesthesia: MAC Procedure: After informed consent was obtained from the patient was brought into the endoscopy unit and IV sedation was administered by anesthesia under continuous monitoring. Initially upper endoscopy was done. The Olympus GF 160 video endoscope was inserted inserted into the mouth and esophagus intubated without any difficulty and was gradually advanced into the stomach and duodenum and carefully examined. The bulb and second part of the duodenum appeared normal. The scope was then withdrawn into the stomach adequately insufflated with air and upon careful examination the antrum 6 mm prepyloric antral ulcer with no active bleeding and biopsies were done from this area. Mucosa of the and body, cardia and fundus appeared normal. The scope was then withdrawn into the esophagus. The GE junction was located at 40 cm to the incisors. No hernia noted. It appeared regular with no erythema erosions or ulcerations. Rest of the esophagus appeared normal. Patient tolerated the procedure well. At this time the patient continued to remain sedation. Initial digital rectal examination was normal. Olympus CF 160 video colonoscope was then inserted into the rectum and gradually advanced to the cecum without any difficulty. Careful examination was performed as the scope was gradually being withdrawn. The prep was in several layers of the colon. There was some old blood noted throughout the entire colon interrogation was performed. Mucosa of the cecum, ascending colon, transverse colon, descending colon, sigmoid colon and rectum appeared normal. Left-sided diverticulosis seen. Retroflexion was performed in the rectum and no lesions were noted. Patient tolerated the procedure well. Impression: 1. Upper endoscopy revealed 6 mm antral ulcer with no active bleeding and small hiatal hernia 2. Colonoscopy revealed scattered sigmoid diverticulosis and some old blood in the colon with no active bleeding Recommendations: Findings of this examination were discussed with the patient as well as family. She will continue on Protonix 40 mg twice daily. Avoid NSAIDs. Advance diet as tolerated. Hold Xarelto for 2 more days.
[2023-11-02] MEDS: MAGNESIUM OXIDE 400 MG TAB PO STA (15:23)
--- NOTE | 2023-11-02 15:46 | US ---
EXAMINATION TYPE: US carotid duplex BILAT DATE OF EXAM: 11/02/2023 COMPARISON: NONE CLINICAL INDICATION: Female, 88 years old with history of Transient visual disturbance, rule out ruiz tid akyce; TIA TECHNIQUE: Carotid duplex ultrasound examination. Indirect Doppler criteria was utilized. FINDINGS: EXAM MEASUREMENTS: RIGHT: Peak Systolic Velocity (PSV) cm/sec ----- Right CCA: 76.9 ----- Right ICA: 97.3 ----- Right ECA: 71.1 ICA/CCA ratio: 1.3 RIGHT: End Diastole cm/sec ----- Right CCA: 14.4 ----- Right ICA: 24.6 ----- Right ECA: 0 LEFT: Peak Systolic Velocity (PSV) cm/sec ----- Left CCA: 55.1 ----- Left ICA: 133.8 ----- Left ECA: 78.6 ICA/CCA ratio: 2.4 LEFT: End Diastole cm/sec ----- Left CCA: 12.9 ----- Left ICA: 43.2 ----- Left ECA: 0 VERTEBRALS (direction of flow): Right Vertebral: Antegrade Left Vertebral: Antegrade Rhythm: Normal PLC CONTROLS ENGINEER NOTES: No significant stenosis seen IMPRESSION: Mildly elevated velocities within the proximal left ICA could reflect turbulent flow versus a moderat e (50-69%) proximal ICA stenosis. Criteria for Assigning % of Stenosis / Diameter reduction (Estimation based on the indirect measurements of the internal carotid artery velocities (ICA PSV). 1. Normal (no stenosis)=ICA PSV < 125 cm/s: ratio < 2.0: ICA EDV<40 cm/s. 2. Less than 50% stenosis=ICA PSV < 125 cm/s: ratio < 2.0: ICA EDV<40 cm/s. 3. 50 to 69% stenosis=ICA PSV of 125 to 230 cm/s: ration 2.0 ? 4.0: ICA EDV 40-100 cm/s. 4. Greater than 70% stenosis to near occlusion= ICA PSV > 230 cm/s: ratio > 4.0: ICA EDV > 100 cm/s. 5. Near occlusion= ICA PSV velocities may be low or undetectable: variable ratio and ICA EDV. 6. Total occlusion=unable to detect flow.
[2023-11-03 09:39] LABS: Anisocytosis Slight; HCT 24.2 % (34.0-46.0); HGB 7.4 gm/dL (11.4-16.0); Hypochromasia Marked; MCH 31.2 pg (25.0-35.0); MCHC 30.6 g/dL (31.0-37.0); MCV 102.1 fL (80.0-100.0); Macrocytosis Moderate; Mean Platelet Volume 8.7; Platelet Count 157 k/uL (150-450); Poikilocytosis Slight; RBC 2.37 m/uL (3.80-5.40); RDW 19.6 % (11.5-15.5); WBC 7.8 k/uL (3.8-10.6)
[2023-11-03 10:06] LABS: African American GFR (CKD) 21 (>60 ml/min/1.73 sqM); Anion Gap 6 mmol/L; Blood Urea Nitrogen 44 mg/dL (7-17); Calcium 8.3 mg/dL (8.4-10.2); Carbon Dioxide 22 mmol/L (22-30); Chloride 104 mmol/L (98-107); Glucose 95 mg/dL (74-99); Non-African American GFR(CKD) 18 (>60 ml/min/1.73 sqM); Potassium 4.6 mmol/L (3.5-5.1); Sodium 132 mmol/L (137-145)
--- NOTE | 2023-11-03 12:01 | P.PN ---
Subjective Progress Note Date: 11/03/23 Principal diagnosis: Anemia, GI bleed This is a pleasant 88-year-old female with a history of coronary artery disease status post stenting, atrial fibrillation on Xarelto, chronic kidney disease, hypertension and hyperlipidemia. Patient presented to the emergency department with complaints of heart palpitations and shortness of breath. She had lab work done that showed a hemoglobin of 5.1 on admission. She was transfused with 2 units of blood with a repeat hemoglobin of 7.7. Patient had reported that she was having some dark stools for the last 5 days or so. She denies previous history of GI bleed. States she had a colonoscopy about 8 years ago no report available at this time. She denies any abdominal pain, nausea or vomiting. Currently no shortness of breath or chest pain. Last dose of Xarelto was Monday night. 11/03/2023 Patient seen and examined today as a follow-up. Yesterday she underwent upper and lower endoscopy. Upper endoscopy revealed a 6 mm antral ulcer with no active bleeding and small hiatal hernia. Colonoscopy revealed scattered sigmoid diverticulosis and some old blood in the colon with no active bleeding. Patient denies any abdominal pain, nausea or vomiting. Today's repeat hemoglobin 7.4. Objective - Vital Signs Vital signs: Vital Signs Temp 97.6 F 11/02/23 20:00 Pulse 66 11/03/23 04:00 Resp 16 11/03/23 04:00 BP 91/40 11/03/23 04:00 Pulse Ox 98 11/03/23 04:00 FiO2 Intake & Output 11/02/23 11/02/23 11/03/23 06:59 18:59 06:59 Intake Total 540 118 Balance 540 118 Intake: Oral 540 118 Other: Voiding Method Toilet Toilet Toilet # Voids 2 1 # Bowel Movements 3 1 - Exam General appearance: The patient is alert, oriented, appears in no acute distress. HET: Head is normocephalic and atraumatic. Conjunctiva pink. Sclera anicteric. Neck: Supple without lymphadenopathy. Abdomen: Soft, nontender, nondistended with bowel sounds. No guarding or ri gidity. Extremities: Normal skin color and turgor. No pedal edema Skin: No rashes, no jaundice Neurological: No focal deficits. Alert and oriented. - Labs CBC & Chem 7: 11/03/23 08:59 11/03/23 08:59 Labs: Abnormal Lab Results - Last 24 Hours (Table) 11/02/23 11/02/23 11/02/23 Range/Units 10:24 10:24 10:24 RBC 2.52 L (3.80-5.40) m/uL Hgb 8.0 L (11.4-16.0) gm/dL Hct 26.3 L (34.0-46.0) % MCV 104.6 H (80.0-100.0) fL MCHC 30.4 L (31.0-37.0) g/dL RDW 20.8 H (11.5-15.5) % Macrocytosis Marked A Sodium 132 L 132 L (137-145) mmol/L Carbon Dioxide 19 L 19 L (22-30) mmol/L BUN 50 H 49 H (7-17) mg/dL Creatinine 2.03 H 2.06 H (0.52-1.04) mg/dL Assessment and Plan (1) Symptomatic anemia Narrative/Plan: 88-year-old female presenting with heart palpitations and shortness of breath found to be quite anemic with a hemoglobin of 5.1. This is a patient with atrial fibrillation on Xarelto reporting black stools for the last 5 days or so. Patient likely with upper GI bleed however with drop in hemoglobin as low as 5.1 and last colonoscopy 8 years ago would recommend evaluation with both upper and lower endoscopy. Patient is agreeable. 11/03/2023 patient underwent upper and lower endoscopy. Upper endoscopy with a 6 mm antral ulcer with no active bleeding and small hiatal hernia and colonoscopy revealing scattered sigmoid diverticulosis and some old blood in the colon with no active bleeding. Recommend holding Xarelto for another 2 days. Continue on Protonix twice daily and avoid NSAIDs. This was discussed with patient. Current Visit: Yes Status: Acute Code(s): D64.9 - ANEMIA, UNSPECIFIED SNOMED Code(s): 936568458 (2) Antral ulcer Current Visit: Yes Status: Acute Code(s): K25.9 - GASTRIC ULCER, UNSP ACUTE OR CHRONIC, W/O HEMOR OR PERF SNOMED Code(s): 5970350509457 (3) Melena Current Visit: Yes Status: Acute Code(s): K92.1 - MELENA SNOMED Code(s): 8795634 (4) Coronary artery disease Current Visit: Yes Status: Acute Code(s): I25.10 - ATHSCL HEART DISEASE OF [place] CORONARY ARTERY W/O ANG PCTRS SNOMED Code(s): 76138939 (5) Atrial fibrillation Current Visit: Yes Status: Acute Code(s): I48.91 - UNSPECIFIED ATRIAL FIBRILLATION SNOMED Code(s): 27239966 (6) CKD (chronic kidney disease) Current Visit: Yes Status: Acute Code(s): N18.9 - CHRONIC KIDNEY DISEASE, UNSPECIFIED SNOMED Code(s): 628825530 Plan: 1. Continue symptomatic and supportive care 2. Patient is status post upper and lower endoscopy 3. Regular diet 4. Continue Protonix 40 mg twice daily 5. May resume Xarelto on Monday 6. Patient is cleared from gastroenterology for discharge. Patient to follow- up with biopsy results Thank you for allowing us to participate in the care of the patient, the GI service will sign off, gastroenterology will not be available at the hospital this weekend and through next week. If further evaluation by gastroenterology is required the patient will need transfer as per the primary team's discretion. Dr. Quinten Barrientos I agree with the dictator's note, documented as a scribe by Alessandra Jordan.
--- NOTE | 2023-11-03 15:18 | P.PN ---
Subjective Progress Note Date: 11/03/23 Hospital course: Patient is a pleasant 88-year-old female with a past medical history of CAD, hypertension, hyperlipidemia, atrial fibrillation on anticoagulation with Xarelto, COPD, chronic kidney disease, hypothyroidism, and macular degeneration. She presented to the emergency department on 10/31/2023 chief complaint of exertional shortness of breath, palpitations, and extreme fatigue and weakness. Upon arrival to our facility, patient underwent evaluation in the emergency department. Vital signs upon arrival show blood pressure 114/71, heart rate 60, respiratory rate 22, temp 97.7 F, and SpO2 of 100% on room air. Completed show ing atrial fibrillation with a controlled ventricular rate of 63 bpm. Chest x- ray showing diffuse interstitial and vascular prominence consistent with mild CHF and pulmonary vascular congestion with trace effusions. Labs were completed and reviewed. CBC showing acute blood loss anemia hemoglobin of 5.1 with baseline hemoglobin of 11. Coagulation profile showing elevated PT of 22.2, INR of 2.2, and PTT of 33.6. BMP showing hyponatremia with sodium of 133, hypocarbia with bicarb of 20 and an acute kidney injury CKD stage III with BUN of 58, creatinine of 2.12, GFR of 21 with baseline creatinine around 1.6. Lactic acid normal findings at 1.0. Magnesium 2.0. Iron profile showing iron of 25, TIBC of 339, and iron percent saturation of 7.37. Troponin was negative less than 0.012. proBNP 6500. Albumin 2.9. Vitamin B 12 1423.0, folate 40.00, and TSH of 0.664. Urinalysis negative for blood or infection. Occult stool was positive for blood. Influenza A, influenza B, RSV, and COVID PCR negative. Patient was then Kcentra and vitamin K followed by transfusion of 2 units PRBCs. She was admitted under our services with consultation to gastroenterology. Patient was taken for EGD and colonoscopy on 11/02/2023. Gastroenterology reporting findings of 6 mm antral ulcer, small hiatal hernia, and scattered sigmoid diverticulosis with old blood noted in the colon without active bleed ing. Wire Taper recommending continuation of Protonix 40 mg twice daily, avoiding NSAIDs, and holding Xarelto for an additional 2 days. Physical exam: Pt seen and fully evaluated at bedside this morning. Patient reports feeling well this morning. She reports improvement of abdominal pain and denies having any episodes of bloody stools or black-colored stools today. She also denies any further episodes of blurred vision or flashing lights in the right eye. Patient reports normal urinary output denies any dysuria, hematuria, retention or frequency. Vital signs reviewed and stable. General: Nontoxic, no distress and appears stated age. Derm: Skin warm and dry, normal coloration for ethnicity. Head: Atraumatic, normocephalic and symmetric. Eyes: EOMs intact, no lid lag, and anicteric sclera Mouth: no lip lesions, mucus membranes moist Cardiovascular: Irregularly irregular, systolic murmur, positive posterior tibial pulses bilaterally, and cap refill < 2 seconds. Lungs: Respirations even, regular, and unlabored on room air. Lungs CTA bilaterally, no rhonchi, no rales, no wheezing, and no accessory muscle usage. Abdominal: soft, mild tenderness upon palpation to epigastric and right upper quadrant, no guarding, no appreciable organomegaly Ext: ROM intact. No gross muscle atrophy, no edema, no contractures Neuro: Speech clear, face symmetrical and CN II-XII grossly intact with no noted focal neuro deficits Psych: Alert and oriented to person, place, time, and situation. Appropriate and pleasant affect. Assessment and Plan of Care: Acute Upper GI bleed: Acute Blood loss anemia secondary to GI bleed -Stool occult blood +. -Continue Protonix 40 mg IVP BID. -Status posttransfusion of 2 unit PRBCs hemoglobin stable at 8.0. -Close monitoring of CBC and transfuse as needed for hemoglobin less than 7. -Telemetry monitoring. -Hold Xarelto. -GI following and planning to take patient for EGD and colonoscopy on 11/02/2023. Transient episode of blurred vision flashing lights/spots in right eye: CT head negative for acute process. Vital signs stable. Continue neurochecks every 4 hours. Consult placed to neurology for evaluation. Supratherapeutic INR: Status post Kcentra and Vit K 5 mg IV. CARLOS on CKD stage IIIb: Worsened with GI bleed and volume depletion. Hold Aldactone. MEEK 04/2023 normal LV function. Fluids were stopped and patient's renal function slightly worsening, patient started back on 0.9% normal saline at 75 cc/h if no improvement or further worsening of renal function, patient will need nephrology consult. Hyponatremia: Likely related to volume depletion. IV hydration as above. Metabolic acidosis: Likely related to volume depletion. IV hydration as above. Atrial fibrillation: Atenolol 25 mg PO QD. Xarelto on hold. Hypothyroidism: Synthroid 75 mcg daily. COPD not in acute exacerbation Hypertension: With episodes of hypotension, blood pressure soft. Hold aldactone. Continue Atenolol as above if BP and HR permits. Dyslipidemia: Lipitor 40 mg PO QHS. Macular degeneration. Recommend continued outpatient follow-up with electric wheelchair repairer outpatient. Data and imaging reviewed: Labs completed and reviewed. CBC showing hemoglobin of 7.4 and MCV of 102.1. BMP showing hyponatremia with sodium of 132 and persistently elevated renal function with BUN of 44, creatinine 2.39, and GFR of 18. Vital signs reviewed. Blood pressure 111/48, heart rate 81, respiratory rate 18, temp 97.8 F, and SpO2 of 98% on room air. CODE STATUS: DNR/DNI DVT prophylaxis: SCDs Anticipated discharge date: Clinical course to determine Anticipated discharge place: Clinical course to determine Patient was seen independently by Nurse Pracitioner. This document was prepared using [employer] dictation software. Please allow for errors in machine bander and cellophaner, while rare they do occur. . Objective - Vital Signs Vital signs: Vital Signs Temp 97.8 F 11/03/23 08:00 Pulse 81 11/03/23 08:00 Resp 18 11/03/23 08:00 BP 111/48 11/03/23 08:00 Pulse Ox 98 11/03/23 08:00 FiO2 Intake & Output 11/02/23 11/03/23 11/03/23 18:59 06:59 18:59 Intake Total 118 236 Balance 118 236 Intake: Oral 118 236 Other: Voiding Method Toilet Toilet # Voids 2 1 2 # Bowel Movements 1 - Labs CBC & Chem 7: 11/03/23 08:59 11/03/23 08:59 Labs: Abnormal Lab Results - Last 24 Hours (Table) 11/02/23 11/02/23 11/02/23 Range/Units 10:24 10:24 10:24 RBC 2.52 L (3.80-5.40) m/uL Hgb 8.0 L (11.4-16.0) gm/dL Hct 26.3 L (34.0-46.0) % MCV 104.6 H (80.0-100.0) fL MCHC 30.4 L (31.0-37.0) g/dL RDW 20.8 H (11.5-15.5) % Macrocytosis Marked A Sodium 132 L 132 L (137-145) mmol/L Carbon Dioxide 19 L 19 L (22-30) mmol/L BUN 50 H 49 H (7-17) mg/dL Creatinine 2.03 H 2.06 H (0.52-1.04) mg/dL
[2023-11-03] MEDS: SODIUM CHLORIDE 0.9% 1,000 ML IV SCH (16:33)
[2023-11-04 09:36] LABS: African American GFR (CKD) 25 (>60 ml/min/1.73 sqM); Anion Gap 6 mmol/L; Blood Urea Nitrogen 38 mg/dL (7-17); Calcium 8.3 mg/dL (8.4-10.2); Carbon Dioxide 18 mmol/L (22-30); Chloride 107 mmol/L (98-107); Glucose 106 mg/dL (74-99); Magnesium 1.5 mg/dL (1.6-2.3); Non-African American GFR(CKD) 22 (>60 ml/min/1.73 sqM); Potassium 4.6 mmol/L (3.5-5.1); Sodium 131 mmol/L (137-145)
[2023-11-04 10:25] LABS: Anisocytosis Slight; HCT 26.8 % (34.0-46.0); HGB 8.1 gm/dL (11.4-16.0); Hypochromasia Moderate; MCH 30.6 pg (25.0-35.0); MCHC 30.4 g/dL (31.0-37.0); MCV 100.9 fL (80.0-100.0); Macrocytosis Moderate; Mean Platelet Volume 9.9; Platelet Count 166 k/uL (150-450); Poikilocytosis Slight; RBC 2.66 m/uL (3.80-5.40); RDW 19.7 % (11.5-15.5); WBC 8.4 k/uL (3.8-10.6)
[2023-11-04 10:51] LABS: Eosinophils # (M) 0.34 k/uL (0-0.7); Lymphocytes # (M) 0.67 k/uL (1.0-4.8); Monocytes # (M) 0.42 k/uL (0-1.0); Neutrophils # (M) 6.97 k/uL (1.3-7.7); Neutrophils % (M) 83 %; Nucleated Red Blood Cells 0 /100 WBC (0-0); Total Cells Counted 100
[2023-11-04 12:01] VITALS: BP 99/63; PULSE 58; RESP 18; TEMP 97.9
--- NOTE | 2023-11-04 12:14 | P.DS ---
Providers Date of admission: 10/31/23 13:57 Expected date of discharge: 11/04/23 Attending physician: Fili Eaton MD Consults: 10/31/23 13:57 Consult Physician Routine Consulting Provider: Arianna Barrientos Consult Reason/Comments: gi bleed, dark tarry stools. on thinners Do you want consulting provider notified?: Yes 11/01/23 14:34 Consult Physician Routine Consulting Provider: Juice Mohan Consult Reason/Comments: right eye blurred vision and seeing spots after receiving kcentra Do you want consulting provider notified?: Yes Primary care physician: [place] [facility] Hospital Course: Discharge Diagnosis: Acute Upper and lower GI bleed Acute Blood loss anemia secondary to GI bleed Peptic ulcer disease Diverticulosis Transient episode of blurred vision flashing lights/spots in right eye Macular degeneration Elevated INR CARLOS on CKD stage IIIb Hyponatremia Metabolic acidosis Atrial fibrillation Hypothyroidism COPD not in acute exacerbation Hypertension Dyslipidemia Hospital Course: Patient is a pleasant 88-year-old female with a past medical history of CAD, hypertension, hyperlipidemia, atrial fibrillation on anticoagulation with Xarelto, COPD, chronic kidney disease, hypothyroidism, and macular degeneration. She presented to the emergency department on 10/31/2023 chief complaint of exertional shortness of breath, palpitations, and extreme fatigue and weakness. On arrival, vital signs upon arrival show blood pressure 114/71, heart rate 60, respiratory rate 22, temp 97.7 F, and SpO2 of 100% on room air. EKG showed atrial fibrillation with a controlled ventricular rate of 63 bpm. Chest x-ray showing diffuse interstitial and vascular prominence consistent with mild CHF and pulmonary vascular congestion with trace effusions. CBC showed hemoglobin of 5.1 with baseline hemoglobin of 11. Coagulation profile showing elevated PT of 22.2, INR of 2.2, and PTT of 33.6. BMP showing hyponatremia with sodium of 133, hypocarbia with bicarb of 20 and an acute kidney injury CKD stage III with BUN of 58, creatinine of 2.12, GFR of 21 with baseline creatinine around 1.6. Lactic acid normal findings at 1.0. Iron profile showing iron of 25, TIBC of 339, and iron percent saturation of 7.37. Troponin was negative less than 0.012. proBNP 6500. Albumin 2.9. Vitamin B 12 1423.0, folate 40.00, and TSH of 0.664. Urinalysis negative for blood or infection. Occult stool was positive for blood. Influenza A, influenza B, RSV, and COVID PCR negative. Patient was then Kcentra and vitamin K followed by transfusion of 2 units PRBCs. She was admitted under our services with consultation to gastroenterology. Patient was taken for EGD and colonoscopy on 11/02/2023. Gastroenterology reporting findings of 6 mm antral ulcer, small hiatal hernia, and scattered sigmoid diverticulosis with old blood noted in the colon without active bleeding. Historiographer recommending continuation of Protonix 40 mg twice daily, avoiding NSAIDs, and holding Xarelto for an additional 2 days. She also had a transient episode of blurred vision, neurology was consulted, CT head negative for any acute process. Likely secondary to macular degeneration. Patient needs outpatient ophthalmology. Kidney function improved. Patient to follow-up with PCP, and GI. Patient seen and examined at bedside. Vital signs reviewed and stable. General: Nontoxic, no distress, appears at stated age Derm: Warm, dry Head: Atraumatic, normocephalic, symmetric Eyes: EOMI, no lid lag, anicteric sclera Mouth: No lip lesion, mucus membranes moist Cardiovascular: S1S2 reg, no murmur Lungs: CTA bilateral, no rhonchi, no rales, no accessory muscle use Abdominal: Soft, nontender to palpation, no guarding, no appreciable organomegaly Ext: No gross muscle atrophy, no edema, no contractures Neuro: CN II-XI grossly intact, no focal neuro deficits Psych: Alert, oriented, appropriate affect A total of 33 minutes of time were spent preparing this complex discharge summary. Patient was discharged on 11/04/2023 at 1115. Patient Condition at Discharge: Stable Plan - Discharge Summary New Discharge Prescriptions: New Pantoprazole [Protonix] 40 mg PO BID #120 tab Continue Magnesium 1,000 mg PO HS Atorvastatin [Lipitor] 40 mg PO HS allopurinoL [Zyloprim] 300 mg PO DAILY Rivaroxaban [Xarelto] 15 mg PO W/SUPPER Levothyroxine Sodium [Synthroid] 75 mcg PO DAILY atenoloL [Tenormin] 25 mg PO DAILY Folic Acid 0.4 mg PO DAILY Spironolactone 50 mg PO DAILY Cyanocobalamin [Vitamin B-12] 500 mcg PO DAILY Vit C/E/Zn/Coppr/Lutein/Zeaxan [Preservision Areds 2 Softgel] 1 cap PO BID Discontinued Unk Neuriva 1 tab PO DAILY Discharge Medication List Atorvastatin [Lipitor] 40 mg PO HS 06/16/15 [History] Magnesium 1,000 mg PO HS 06/16/15 [History] allopurinoL [Zyloprim] 300 mg PO DAILY 06/16/15 [History] Cyanocobalamin [Vitamin B-12] 500 mcg PO DAILY 04/17/23 [History] Levothyroxine Sodium [Synthroid] 75 mcg PO DAILY 04/17/23 [History] Rivaroxaban [Xarelto] 15 mg PO W/SUPPER 04/17/23 [History] Spironolactone 50 mg PO DAILY 04/17/23 [History] Folic Acid 0.4 mg PO DAILY 10/31/23 [History] Vit C/E/Zn/Coppr/Lutein/Zeaxan [Preservision Areds 2 Softgel] 1 cap PO BID 10/31/23 [History] atenoloL [Tenormin] 25 mg PO DAILY 10/31/23 [History] Pantoprazole [Protonix] 40 mg PO BID #120 tab 11/04/23 [Rx] Follow up Appointment(s)/Referral(s): Robert Yung MD [STAFF PHYSICIAN] - 1 Week Arianna Barrientos MD [STAFF PHYSICIAN] - 1 Week Thomas Vicente DO [Primary Care Provider] - 1-2 days Patient Instructions/Handouts: Peptic Ulcer (DC), Gastrointestinal Bleeding (ED), Gastrointestinal Bleeding (DC) Activity/Diet/Wound Care/Special Instructions: Please see GI and PCP, and ophthalmology. Restart Xarelto on Monday (11/05/23) Discharge/Stand Alone Forms: Who Do I Call? Discharge Disposition: HOME SELF-CARE
== END 2023-11-04 12:55 | disposition home or self-care (01) | DRG 378 ==
LOC: EC 10:29 → 3SCARD 13:57
PROVIDERS: ADMIT Student in an Organized Health Care Education/Training Program; ATTEND Student in an Organized Health Care Education/Training Program
PROC: 30233N1 Transfusion of Nonautologous Red Blood Cells into Peripheral Vein, Percutaneous Approach (ICD-10-PCS; 2023-10-31)
PROC: 30283B1 Transfusion of Nonautologous 4-Factor Prothrombin Complex Concentrate into Vein, Percutaneous Approach (ICD-10-PCS; 2023-11-01)
PROC: 0DB78ZX Excision of Stomach, Pylorus, Via Natural or Artificial Opening Endoscopic, Diagnostic (ICD-10-PCS; principal; 2023-11-02 12:30)
PROC: 0DJD8ZZ Inspection of Lower Intestinal Tract, Via Natural or Artificial Opening Endoscopic (ICD-10-PCS; 2023-11-02 12:30)
DX: K25.4 Chronic or unspecified gastric ulcer with hemorrhage (principal); D62 Acute posthemorrhagic anemia; E87.1 Hypo-osmolality and hyponatremia; N17.9 Acute kidney failure, unspecified; E87.20 Acidosis, unspecified; H53.121 Transient visual loss, right eye; E87.6 Hypokalemia; H35.30 Unspecified macular degeneration; N18.32 Chronic kidney disease, stage 3b; I48.91 Unspecified atrial fibrillation; N18.30 Chronic kidney disease, stage 3 unspecified; Z88.6 Allergy status to analgesic agent; Z88.0 Allergy status to penicillin; K57.30 Diverticulosis of large intestine without perforation or abscess without bleeding; Z98.42 Cataract extraction status, left eye; Z98.41 Cataract extraction status, right eye; I12.9 Hypertensive chronic kidney disease with stage 1 through stage 4 chronic kidney disease, or unspecified chronic kidney disease; E03.9 Hypothyroidism, unspecified; E78.5 Hyperlipidemia, unspecified; E86.9 Volume depletion, unspecified; F41.9 Anxiety disorder, unspecified; I25.2 Old myocardial infarction; I25.10 Atherosclerotic heart disease of native coronary artery without angina pectoris; K44.9 Diaphragmatic hernia without obstruction or gangrene; J44.9 Chronic obstructive pulmonary disease, unspecified; R79.1 Abnormal coagulation profile; Z79.01 Long term (current) use of anticoagulants; Z79.890 Hormone replacement therapy; Z79.899 Other long term (current) drug therapy; Z82.49 Family history of ischemic heart disease and other diseases of the circulatory system; Z87.891 Personal history of nicotine dependence; Z90.710 Acquired absence of both cervix and uterus; Z95.5 Presence of coronary angioplasty implant and graft; Z96.653 Presence of artificial knee joint, bilateral
CPT/HCPCS: 36415; 36430; 43239; 45378; 70450; 71046; 80048; 80053; 81001; 82272; 82607; 82728; 82746; 83540; 83550; 83605; 83735; 83880; 84443; 84484; 85025; 85027; 85610; 85730; 86850; 86900; 86901; 86920; 87636; 88305; 93005; 93880; 94760; 96365; 96375; 96376; 99291

== ENCOUNTER → 2024-02-26 | Outpatient (CLI) | payer MEDICARE ==
--- NOTE | 2024-02-26 14:31 | US ---
EXAMINATION TYPE: US kidneys/renal and bladder DATE OF EXAM: 02/26/2024 COMPARISON: 07/08/21 CLINICAL INDICATION: Female, 88 years old with history of N18.4 CHRONIC KIDNEY DISEASE, STAGE 4 (JULIANA RE); CKD EXAM MEASUREMENTS: Right Kidney: 8.1 x 4.0 x 4.8 cm Left Kidney: 7.6 x 3.9 x 4.1 cm Right Kidney: cystic area seen at inferior pole measuring 2.4 x 2.0 x 2.2cm Left Kidney: No hydronephrosis or masses seen Bladder: wnl Bilateral Jets seen: No There is no evidence for hydronephrosis at this point in time. No nephrolithiasis is seen. Corticome dullary differentiation is maintained bilaterally. Right inferior pole simple cyst. No solid masses a re identified. The urinary bladder is anechoic. Bilateral ureteral jets are not seen. IMPRESSION: 1. No hydronephrosis or nephrolithiasis. 2. Right renal cyst redemonstrated.
== END | disposition home or self-care (01) ==
LOC: RADUSWWP 13:56
PROVIDERS: ATTEND Internal Medicine Nephrology
DX: N18.4 Chronic kidney disease, stage 4 (severe)
CPT/HCPCS: 76770